=== PATIENT | female | born 1970 | race Caucasian/White ===

== ENCOUNTER 2020-08-06 16:03 | Outpatient (REF) | payer OTHER, SELFPAY ==
[2020-08-06 16:20] LABS: COVID-19 Test Negative (Negative)
== END 2020-08-06 16:04 | disposition home or self-care (01) ==
LOC: HO.LAB 16:03
PROVIDERS: Visit Provider Internal Medicine
DX: Z20.828 Contact with and (suspected) exposure to other viral communicable diseases (principal)
CPT/HCPCS: 87635

== ENCOUNTER 2020-08-10 07:19 | Outpatient (REF) | payer OTHER, SELFPAY ==
[2020-08-10 07:52] LABS: COVID-19 Test Negative (Negative)
== END 2020-08-10 07:20 | disposition home or self-care (01) ==
LOC: HO.LAB 07:19
PROVIDERS: Visit Provider Internal Medicine
DX: Z20.828 Contact with and (suspected) exposure to other viral communicable diseases (principal)
CPT/HCPCS: 87635

== ENCOUNTER 2020-08-14 04:43 | Outpatient (REF) | payer OTHER, SELFPAY ==
[2020-08-14 09:04] LABS: SARS COV2 IgG Negative (Negative)
== END 2020-08-14 04:44 | disposition home or self-care (01) ==
LOC: HO.LAB 04:43
PROVIDERS: PCP Physician Assistant; Visit Provider Emergency Medicine
DX: Z01.84 Encounter for antibody response examination (principal); Z86.19 Personal history of other infectious and parasitic diseases
CPT/HCPCS: 86769

== ENCOUNTER 2020-08-31 07:15 | Outpatient (REF) | payer OTHER, SELFPAY ==
[2020-08-31 08:06] LABS: COVID-19 Test Negative (Negative); IDNOW Serial# 55D5AD1C
== END 2020-08-31 07:16 | disposition home or self-care (01) ==
LOC: HO.LAB 07:15
PROVIDERS: Visit Provider Internal Medicine
DX: Z20.828 Contact with and (suspected) exposure to other viral communicable diseases (principal)
CPT/HCPCS: 87635; C9803

== ENCOUNTER 2020-09-09 11:26 | Outpatient (REF) | payer OTHER, SELFPAY ==
[2020-09-09 11:47] LABS: COVID-19 Test Negative (Negative)
== END 2020-09-09 11:27 | disposition home or self-care (01) ==
LOC: HO.LAB 11:26
PROVIDERS: Visit Provider Internal Medicine
DX: Z20.828 Contact with and (suspected) exposure to other viral communicable diseases (principal)
CPT/HCPCS: 87635; C9803

== ENCOUNTER 2021-01-23 19:11 | Outpatient (REF) | payer OTHER, SELFPAY ==
[2021-01-23 21:34] LABS: Glucose Urine UA NEG (NEG); Leukocyte Esterase Urine TRACE (NEG); Nitrite Urine NEG (NEG); Specific Gravity - Urine <= 1.005 (1.005-1.025); UACC Culture Trigger YES; Urine Blood NEG (NEG); Urine Ketones NEG (NEG); Urine Protein NEG (NEG-TRACE)
[2021-01-23 21:38] LABS: Appearance Urine CLEAR; Color Urine STRAW
[2021-01-23 21:57] LABS: Bacteria Urine TRACE /LPF; Calcium Oxalate Crystals Urine TRACE /LPF; Mucus Urine TRACE /LPF; RBC Urine 0 /HPF (0); Squamous Epithelial Cell Urine 1+ /LPF; WBC Clumps Urine NOTED
== END 2021-01-23 19:12 | disposition home or self-care (01) ==
LOC: HO.LAB 19:11
PROVIDERS: Visit Provider Nurse Practitioner Family
DX: R82.81 Pyuria (principal); R39.15 Urgency of urination
CPT/HCPCS: 81001; 81003; 87086; 87088; 87186

== ENCOUNTER 2021-02-01 07:35 | Outpatient (REF) | payer OTHER, SELFPAY ==
[2021-02-01 07:59] LABS: COVID-19 Test Negative (Negative); IDNOW Serial# 55D5AD1C
== END 2021-02-01 07:36 | disposition home or self-care (01) ==
LOC: HO.EMPCOV 07:35
PROVIDERS: Visit Provider Internal Medicine
DX: Z20.822 Contact with and (suspected) exposure to COVID-19 (principal)
CPT/HCPCS: 36415; 87635; C9803

== ENCOUNTER 2021-03-11 05:42 | Outpatient (REF) | payer OTHER, SELFPAY ==
[2021-03-11 08:29] LABS: SARS COV2 IgG Negative (Negative)
== END 2021-03-11 05:43 | disposition home or self-care (01) ==
LOC: HO.LAB 05:42
PROVIDERS: Visit Provider Emergency Medicine
DX: Z20.822 Contact with and (suspected) exposure to COVID-19 (principal)
CPT/HCPCS: 36415; 86769

== ENCOUNTER 2021-03-25 07:48 | Outpatient (REF) | payer OTHER, SELFPAY ==
--- NOTE | ~2021-03-25 | US_ITS ---
EXAMINATION: US RETROPERITONEAL LIMITED (RENAL ONLY) CLINICAL INFORMATION: History of stones. Follow up. COMPARISON: Renals only ultrasounds dated 03/04/2020 and 02/19/2019. TECHNIQUE: Real-time imaging of the kidneys. FINDINGS: RIGHT KIDNEY: 10.9 x 4.6 x 6.1 cm (SAG x AP x TRV). The kidney is normal in size, contour, and echogenicity. Renal cortical thickness is normal. No renal calculi or hydronephrosis. There is an anechoic cyst in the upper pole measuring 1.4 x 1.1 x 0.90 cm. LEFT KIDNEY: 10.5 x 5.2 x 7.7 cm (SAG x AP x TRV). The kidney is normal in size, contour, and echogenicity. Renal cortical thickness is normal. No focal parenchymal lesions or hydronephrosis. There is an echogenic stone in the midpole measuring 0.41 x 0.30 x 0.40 cm. US/US renal BI IMPRESSION: Nonobstructive echogenic stone midpole left kidney. Anechoic cyst upper pole right kidney. There is no hydronephrosis.
== END 2021-03-25 07:49 | disposition home or self-care (01) ==
LOC: HO.US 07:48
PROVIDERS: Visit Provider Urology
DX: N20.0 Calculus of kidney (principal)
CPT/HCPCS: 76775

== ENCOUNTER → 2021-04-02 11:46 | Outpatient (BNVA) | payer OTHER, SELFPAY | PROVIDERS: Visit Provider Urology ==

== ENCOUNTER 2021-05-03 01:11 | Outpatient (REF) | payer OTHER, SELFPAY ==
[2021-05-03 03:20] LABS: Glucose Urine UA NEG (NEG); Leukocyte Esterase Urine 1+ (NEG); Nitrite Urine NEG (NEG); Specific Gravity - Urine >= 1.030 (1.005-1.025); UACC Culture Trigger YES; Urine Blood 1+ (NEG); Urine Ketones NEG (NEG); Urine Protein NEG (NEG-TRACE)
[2021-05-03 03:21] LABS: Appearance Urine HAZY; Color Urine YELLOW
[2021-05-03 03:31] LABS: Bacteria Urine TRACE /LPF; Mucus Urine 2+ /LPF; Squamous Epithelial Cell Urine 2+ /LPF; WBC Urine 0-2 /HPF (0-4)
== END 2021-05-03 01:12 | disposition home or self-care (01) ==
LOC: HO.LAB 01:11
PROVIDERS: Visit Provider Nurse Practitioner Family
DX: N39.0 Urinary tract infection, site not specified (principal)
CPT/HCPCS: 81001; 81003; 87086

== ENCOUNTER 2021-05-19 15:36 | Outpatient (REF) | payer OTHER, SELFPAY ==
[2021-05-19 16:33] LABS: Glucose Urine UA NEG (NEG); Leukocyte Esterase Urine TRACE (NEG); Nitrite Urine POS (NEG); Specific Gravity - Urine >= 1.030 (1.005-1.025); Urine Blood 2+ (NEG); Urine Ketones NEG (NEG); Urine Protein NEG (NEG-TRACE)
[2021-05-19 16:35] LABS: Appearance Urine CLEAR; Color Urine YELLOW
[2021-05-19 16:56] LABS: Squamous Epithelial Cell Urine 1+ /LPF
[2021-05-19 16:57] LABS: Bacteria Urine 2+ /LPF; Mucus Urine 1+ /LPF
== END 2021-05-19 15:37 | disposition home or self-care (01) ==
LOC: HO.LAB 15:36
PROVIDERS: PCP Physician Assistant; Visit Provider Urology
DX: N20.0 Calculus of kidney (principal)
CPT/HCPCS: 81001; 87086

== ENCOUNTER 2021-05-20 01:12 | Emergency (ER) | payer OTHER, SELFPAY ==
--- NOTE | ~2021-05-20 | CT_ITS ---
EXAMINATION: CT ABDOMEN AND PELVIS WITHOUT CONTRAST CLINICAL INFORMATION: Question of stone COMPARISON: Ultrasound dated 03/25/2021 TECHNIQUE: Multidetector volumetric imaging was performed from the superior aspect of the liver through the pubic symphysis. Sagittal and coronal reformatted images were obtained on the technologist's workstation. This CT examination was performed using dose optimization techniques as appropriate, variously including the following: *Automated exposure control *Adjustment of mA and/or kV according to patient size (this includes techniques or standardized protocols for targeted exams where dose is matched to indication/reason for exam; i.e. extremities or head) *Use of iterative reconstruction technique DLP: 713 mGy-cm FINDINGS: LUNG BASES: The visualized lung bases are unremarkable. LIVER, GALLBLADDER, AND BILIARY TREE: The liver is normal in size, shape, and attenuation. No suspicious liver lesions. There are a few hepatic cysts. No intra or extrahepatic biliary dilatation. Gallbladder unremarkable. PANCREAS: Unremarkable. SPLEEN: Unremarkable. ADRENAL GLANDS: Unremarkable. KIDNEYS AND URETERS: There is a 4 mm stone within the distal right ureter at the ureterovesical junction associated mild upstream hydroureteronephrosis and perinephric stranding. There are additional single bilateral nonobstructive intrarenal calculi each measuring 4 mm, lower pole right and interpolar left kidney. BLADDER: Unremarkable. GASTROINTESTINAL TRACT: Small sliding-type hiatal hernia. The small and large bowel are unremarkable. The appendix is unremarkable. ABDOMINAL WALL: No significant hernia is appreciated. LYMPH NODES: Normal. VASCULAR: Unremarkable. PELVIC VISCERA: IUD present within the uterus. Ovaries unremarkable. OSSEOUS STRUCTURES: No acute or suspicious osseous abnormalities. CT/CT abdomen pelvis wo con IMPRESSION: * There is a 4 mm calculus within the distal RIGHT ureter at the ureterovesical junction associated with mild upstream hydroureteronephrosis and perinephric stranding indicative of obstructive uropathy. * Single bilateral nonobstructive intrarenal calculi.
[2021-05-20 01:14] VITALS: BP 177/101; PULSE 103; RESP 20; TEMP 36.8; O2SAT 96; BMI 31.6
--- NOTE | 2021-05-20 01:21 | ED_ITS ---
HPI - Abdominal Pain General Chief Complaint: Abdominal Pain <SURJIT Beach Last Filed: 05/20/21 01:37> Stated Complaint: ? <SURJIT Beach Last Filed: 05/20/21 01:37> Time Seen by Provider: 05/20/21 01:20 <SURJIT Beach Last Filed: 05/20/21 01:37> Source: patient <SURJIT Beach Last Filed: 05/20/21 01:37> Mode of arrival: ambulatory <SURJIT Beach Filed: 05/20/21 01:37> Limitations: no limitations <SURJIT Beach Alan Filed: 05/20/21 01:37> History of Present Illness HPI narrative: Patient is a 50-year-old female with a past medical history of recurrent nephrolithiasis presenting with right-sided flank pain x1 day. She states she has had a kidney stone on the left side that she passed approximately a week ago and sometimes gets refractory infections. She called Dr. Ford today and had her urine tested yesterday and it was positive for infection. She does have a little bit of blood in her urine as well as nausea but denies vomiting or fevers. Patient has been taking Pyridium for the past 3 days with good relief of pain but is no longer working well for her. <SURJIT Beach Last Filed: 05/20/21 01:37> Related Data Home Medications: Home Medications Medication Instructions Recorded Confirmed cefuroxime axetil 500 mg tablet 500 mg PO BID 04/02/21 fluconazole 150 mg tablet 0 mg PO 04/02/21 Previous Rx's Medication Instructions Recorded cefuroxime axetil 500 mg tablet 500 mg PO Q12H 7 Days #14 tab 05/20/21 ketorolac 10 mg tablet 10 mg PO Q8H PRN #20 tab 05/20/21 ondansetron HCl 4 mg tablet 4 mg PO Q8H PRN #10 tab 05/20/21 (Zofran) prednisone 20 mg tablet 20 mg PO BID #10 tab 05/20/21 <SURJIT Beach Last Filed: 05/20/21 01:37> Allergies/Adverse Reactions: Allergies Allergy/AdvReac Type Severity Reaction Status Date / Time No Known Allergies Allergy Verified 05/20/21 01:21 [No Known Allergies*] <Cris Granados PA-C - Last Filed: 05/20/21 01:37> Review of Systems Review of Systems Yes all other systems are reviewed and are negative <RADHA Beach - Last Filed: 05/20/21 01:37> Physical Exam Vital Signs: Vital Signs: Last Vital Signs Temp 98.3 F 05/20/21 01:14 Pulse 103 H 05/20/21 01:14 Resp 05/20/21 01:14 BP 177/101 H 05/20/21 01:14 Pulse Ox 96 05/20/21 01:14 Body Mass Index 31.6 <Cris Granados PA-C - Last Filed: 05/20/21 01:37> Vital Signs: Last Vital Signs Temp 98.3 F 05/20/21 01:14 Pulse 103 H 05/20/21 01:14 Resp 05/20/21 01:14 BP 177/101 H 05/20/21 01:14 Pulse Ox 96 05/20/21 01:14 Body Mass Index 31.6 <Ace Rock MD - Last Filed: 05/20/21 02:47> Const: General: cooperative, healthy appearing, comfortable and no acute distress <Cris Granados PA-C - Last Filed: 05/20/21 01:37> Nutritional Appearance: average body habitus <SURJIT Beach Last Filed: 05/20/21 01:37> Orientation/consciousness: patient oriented x3 <SURJIT Beach Last Filed: 05/20/21 01:37> Limitations: no limitations <SURJIT Beach Last Filed: 05/20/21 01:37> Eyes: General: appearance normal, both eyes and all related structures <SURJIT Beach Last Filed: 05/20/21 01:37> Neck: Neck: Yes normal visual inspection and Yes full ROM <SURJIT Beach Last Filed: 05/20/21 01:37> Resp: Effort & Inspection: normal respiratory effort and able to speak in complete sentences <SURJIT Beach Last Filed: 05/20/21 01:37> GI: Inspection: Yes normal to inspection <SURJIT Beach Last Filed: 05/20/21 01:37> Palpation (GI): Soft to palpation and nontender <SURJIT Beach Last Filed: 05/20/21 01:37> : General: Yes no CVA tenderness <SURJIT Beach Last Filed: 05/20/21 01:37> Back/Spine/Pelvis: Back: no CVA tenderness <SURJIT Beach Last Filed: 05/20/21 01:37> Neuro: General: patient oriented x3 <SURJIT Beach Last Filed: 05/20/21 01:37> Extrem: General: Yes normal to inspection and Yes full ROM <SURJIT Beach Last Filed: 05/20/21 01:37> Course Course Course Narrative: Patient is a 50-year-old female with a past medical history of recurrent nephrolithiasis presenting with right-sided flank pain x1 day. Vital signs reveal slightly hypertensive and tachycardic, likely secondary to pain. Will give patient Zofran, Toradol, labs and order CT scan to verify no hydronephrosis. UA+ for infection from today. Will start antibiotics in the ED and send RX for remainder. Patient has history of E coli infection in the urine. <SURJIT Beach Last Filed: 05/20/21 01:37> Reevaluation(s) Reevaluation #1: Patient's vital signs seem to be re-checked once she is medicated for pain. Sent prescription to pharmacy for UTI. CT of abdomen and pelvis pending. Sign out to Dr. Rock. <SURJIT Beach Last Filed: 05/20/21 01:37> Time: 01:32 <SURJIT Beach Last Filed: 05/20/21 01:37> Reevaluation #2: Patient was seen and evaluated by me. 50-year-old female came in with right flank pain, known history of kidney stones and UTI. CT showed obstructing 4 mm stone at the right UVJ with hydroureteronephrosis, with normal kidney function test. Labs/CT finding were discussed with the patient. Borderline hyperglycemia patient was instructed to monitor blood sugar. Slight elevation of BP patient is instructed to keep monitoring blood pressure. Will discharge the patient on 5 days of prednisone, Toradol, cefuroxime. <Ace Rock MD - Last Filed: 05/20/21 02:47> Time: 02:43 <Ace Rock MD - Last Filed: 05/20/21 02:47> MDM - Abdominal Pain Lab Data Attestation: I reviewed the patient's lab results. <Ace Rock MD - Last Filed: 05/20/21 02:47> Result diagrams: : 05/20/21 01:46 05/20/21 01:46 <Cris Granados PA-C - Last Filed: 05/20/21 01:37> Labs: Lab Results 05/20/21 05/20/21 Range/Units 01:46 01:46 WBC 10.0 (4.8-10.8) X10*3/uL RBC 4.69 (4.20-5.50) X10*6/uL Hgb 13.9 (12.0-16.0) g/dl Hct 41.6 (37-47) % MCV 88.7 (80-98) fL MCH 29.6 (27.0-33.0) pg MCHC 33.4 (31.0-35.0) g/dl RDW 12.0 (11.0-16.0) % Plt Count 373 (160-400) X10*3/uL MPV 9.7 (9.4-12.3) fL Immature Gran % (Auto) 0.3 (0.0-0.4) % Neut % (Auto) 77.6 H (45-73) % Lymph % (Auto) 16.3 L (20-40) % [place] % (Auto) 4.7 (2-11) % Eos % (Auto) 0.5 (0-4) % Baso % (Auto) 0.6 (0-2) % Lymph # (Auto) 1.6 (1.2-4.9) X10*3/uL [place] # (Auto) 0.5 (0.1-1.2) X10*3/uL Eos # (Auto) 0.1 (0.0-0.4) X10*3/uL Baso # (Auto) 0.1 (0.0-0.2) X10*3/uL Abs Immat Gran (auto) 0.03 (0.00-0.03) X10*3/uL Absolute Neuts (auto) 7.8 (2.0-8.3) X10*3/uL Absolute Nucleated RBC 0.000 (0.0-0.012) X10*3/uL Nucleated RBC % (auto) 0.0 (0.0-0.2) /100WBC Sodium 140 (135-145) mmol/L Potassium 3.7 (3.3-5.1) mmol/L Chloride 106 (96-108) mmol/L Carbon Dioxide 24 (22-29) mmol/L Anion Gap 14 (12-20) BUN 12 (9-16) mg/dL Creatinine 0.95 (0.5-1.4) mg/dL Estim Creat Clear Calc 75.1 Estimated GFR > 60 Random Glucose 119 H (60-115) mg/dL Calcium 9.2 (8.4-10.2) mg/dL <Cris Granados PA-C - Last Filed: 05/20/21 01:37> Lab Results 05/20/21 05/20/21 Range/Units 01:46 01:46 WBC 10.0 (4.8-10.8) X10*3/uL RBC 4.69 (4.20-5.50) X10*6/uL Hgb 13.9 (12.0-16.0) g/dl Hct 41.6 (37-47) % MCV 88.7 (80-98) fL MCH 29.6 (27.0-33.0) pg MCHC 33.4 (31.0-35.0) g/dl RDW 12.0 (11.0-16.0) % Plt Count 373 (160-400) X10*3/uL MPV 9.7 (9.4-12.3) fL Immature Gran % (Auto) 0.3 (0.0-0.4) % Neut % (Auto) 77.6 H (45-73) % Lymph % (Auto) 16.3 L (20-40) % [place] % (Auto) 4.7 (2-11) % Eos % (Auto) 0.5 (0-4) % Baso % (Auto) 0.6 (0-2) % Lymph # (Auto) 1.6 (1.2-4.9) X10*3/uL [place] # (Auto) 0.5 (0.1-1.2) X10*3/uL Eos # (Auto) 0.1 (0.0-0.4) X10*3/uL Baso # (Auto) 0.1 (0.0-0.2) X10*3/uL Abs Immat Gran (auto) 0.03 (0.00-0.03) X10*3/uL Absolute Neuts (auto) 7.8 (2.0-8.3) X10*3/uL Absolute Nucleated RBC 0.000 (0.0-0.012) X10*3/uL Nucleated RBC % (auto) 0.0 (0.0-0.2) /100WBC Sodium 140 (135-145) mmol/L Potassium 3.7 (3.3-5.1) mmol/L Chloride 106 (96-108) mmol/L Carbon Dioxide 24 (22-29) mmol/L Anion Gap 14 (12-20) BUN 12 (9-16) mg/dL Creatinine 0.95 (0.5-1.4) mg/dL Estim Creat Clear Calc 75.1 Estimated GFR > 60 Random Glucose 119 H (60-115) mg/dL Calcium 9.2 (8.4-10.2) mg/dL <Ace Rock MD - Last Filed: 05/20/21 02:47> Imaging Data CT scan - abdomen: Radiologist's impression: ? There is a 4 mm calculus within the distal RIGHT ureter at the ureterovesical junction associated with mild upstream hydroureteronephrosis and perinephric stranding indicative of obstructive uropathy. *? Single bilateral nonobstructive intrarenal calculi.? <Ace Rock MD - Last Filed: 05/20/21 02:47> Discharge Plan Discharge Clinical Impression: Right nephrolithiasis UTI (urinary tract infection) Qualifiers: Urinary tract infection type: acute cystitis Hematuria presence: with hematuria Qualified Code(s): N30.01 - Acute cystitis with hematuria <Cris Granados PA-C - Last Filed: 05/20/21 01:37> Patient Disposition: Home, Self-Care <Cris Granados PA-C - Last Filed: 05/20/21 01:37> Instructions: Kidney Stones (ED), Urinary Tract Infection in Women (ED) <Cris Granados PA-C - Last Filed: 05/20/21 01:37> Prescriptions: New cefuroxime axetil 500 mg tablet 500 mg PO Q12H 7 Days Qty: 14 RF: 0 ondansetron HCl [Zofran] 4 mg tablet 4 mg PO Q8H PRN (Reason: nausea and vomiting) Qty: 10 RF: 0 prednisone 20 mg tablet 20 mg PO BID Qty: 10 RF: 0 ketorolac 10 mg tablet 10 mg PO Q8H PRN (Reason: pain) Qty: 20 RF: 0 <Cris Granados PA-C - Last Filed: 05/20/21 01:37> Referrals: Darshan Ford MD [Physician] - 2 days <Cris Granados PA-C - Last Filed: 05/20/21 01:37> [facility] Past Medical History Medical History: Medical History Recurrent nephrolithiasis <Cris Granados PA-C - Last Filed: 05/20/21 01:37> Social History Social History: Social History Advance Directives: No Advance Directives Information Provided: No Patient : No <Cris Granados PA-C - Last Filed: 05/20/21 01:37>
--- NOTE | 2021-05-20 01:27 | PC.NURSE ---
PA at bedside. Pt ambulating to CT. Plan for IV/meds upon return.
[2021-05-20] MEDS: Ketorolac Tromethamine 15 MG/ML VIAL 30 MG IVPUSH (01:38)
--- NOTE | 2021-05-20 01:42 | PC.NURSE ---
IV established, labs obtained. Pt medicated per DEC. Awaiting CT results.
[2021-05-20 01:50] LABS: Basophils Absolute Auto 0.1 X10*3/uL (0.0-0.2); Basophils Percent Auto 0.6 % (0-2); Eosinophils Absolute Auto 0.1 X10*3/uL (0.0-0.4); Eosinophils Percent Auto 0.5 % (0-4); Hematocrit 41.6 % (37-47); Hemoglobin 13.9 g/dl (12.0-16.0); Imm Gran Abs Auto 0.03 X10*3/uL (0.00-0.03); Imm Gran Pct Auto 0.3 % (0.0-0.4); Lymphocytes Absolute Auto 1.6 X10*3/uL (1.2-4.9); Lymphocytes Percent Auto 16.3 % (20-40); MANUAL DIFF FLAG NO; Mean Corpuscular HGB Conc 33.4 g/dl (31.0-35.0); Mean Corpuscular Hemoglobin 29.6 pg (27.0-33.0); Mean Corpuscular Volume 88.7 fL (80-98); Mean Platelet Volume 9.7 fL (9.4-12.3); Monocytes Absolute Auto 0.5 X10*3/uL (0.1-1.2); Monocytes Percent Auto 4.7 % (2-11); Neutrophils Absolute Auto 7.8 X10*3/uL (2.0-8.3); Neutrophils Percent Auto 77.6 % (45-73); Platelet Count 373 X10*3/uL (160-400); Red Blood Count 4.69 X10*6/uL (4.20-5.50)
--- NOTE | 2021-05-20 02:07 | PC.NURSE ---
Pt reports being nearly pain free after Toradol.
[2021-05-20 02:16] LABS: Anion Gap 14 (12-20); Blood Urea Nitrogen 12 mg/dL (9-16); Calcium 9.2 mg/dL (8.4-10.2); Carbon Dioxide 24 mmol/L (22-29); Chloride 106 mmol/L (96-108); Creatinine Clr Calc Pharmacy 75.1; Estimated Glomerular Filt Rate > 60; Glucose Random 119 mg/dL (60-115); Potassium 3.7 mmol/L (3.3-5.1); Sodium 140 mmol/L (135-145)
[2021-05-20 02:54] VITALS: BP 163/72; PULSE 78; RESP 16
== END 2021-05-20 03:26 | disposition home or self-care (01) ==
PROVIDERS: Physician Assistant; Emergency Provider Emergency Medicine
DX: N20.0 Calculus of kidney (principal); N30.01 Acute cystitis with hematuria; Z79.899 Other long term (current) drug therapy
CPT/HCPCS: 36415; 74176; 80048; 85025; 96365; 96375; 99284; J1885; J2405

== ENCOUNTER 2021-06-26 08:23 | Outpatient (REF) | payer OTHER, SELFPAY ==
--- NOTE | ~2021-06-26 | MM_ITS ---
EXAMINATION: MM SCREENING DIGITAL BREAST TOMOSYNTHESIS, BILATERAL CLINICAL INFORMATION: Screening. Asymptomatic. The lifetime risk of breast cancer based on the Tyrer-Cuzick Model is 11%. COMPARISON: Mammography: 06/06/2020, 01/15/2019, 12/18/2017 TECHNIQUE: Digital breast tomosynthesis is performed in both the craniocaudal and mediolateral oblique views along with computer-aided detection (CAD). Synthesized 2D images are generated from the tomosynthesis. FINDINGS: There are scattered areas of fibroglandular density (ACR BI-RADS breast composition Category b). There are no significant masses, abnormal calcifications, or other abnormalities. Parenchymal pattern is similar to prior study. No developing density. No significant changes MM/MM tomosynthesis screening BI IMPRESSION: No mammographic evidence of malignancy. ASSESSMENT: BI-RADS 1: Negative RECOMMENDATION: Routine annual mammography screening. This patient's information was entered into a reminder system with a target due date for their next mammogram.
== END 2021-06-26 08:24 | disposition home or self-care (01) ==
LOC: HO.MAMMO 08:23
PROVIDERS: Visit Provider Physician Assistant
DX: Z12.31 Encounter for screening mammogram for malignant neoplasm of breast (principal)
CPT/HCPCS: 77063; 77067

== ENCOUNTER 2021-06-29 04:45 | Outpatient (REF) | payer OTHER, SELFPAY ==
[2021-06-29 05:22] LABS: COVID-19 Test Negative (Negative); IDNOW Serial# 9DD0AD1C
== END 2021-06-29 04:46 | disposition home or self-care (01) ==
LOC: HO.LAB 04:45
PROVIDERS: Visit Provider Internal Medicine
DX: Z20.822 Contact with and (suspected) exposure to COVID-19 (principal)
CPT/HCPCS: 36415; 87635

== ENCOUNTER 2022-02-11 07:54 | Outpatient (REF) | payer OTHER, SELFPAY ==
--- NOTE | ~2022-02-11 | US_ITS ---
EXAMINATION: US RETROPERITONEAL LIMITED (RENAL ONLY) CLINICAL INFORMATION: Calculus of kidney. COMPARISON: CT abdomen and pelvis 05/20/2021. Renal ultrasound 03/25/2021 and 03/04/2020. TECHNIQUE: Real-time imaging of the kidneys. FINDINGS: RIGHT KIDNEY: 10.6 x 4.1 x 6.0 cm (SAG x AP x TRV). The kidney is normal in size, contour, and echogenicity. Renal cortical thickness is normal. No renal calculi or hydronephrosis. There is an anechoic cyst in the upper pole measuring 1.4 x 1.3 x 1.2 cm. LEFT KIDNEY: 10.1 x 5.0 x 4.8 cm (SAG x AP x TRV). The kidney is normal in size, contour, and echogenicity. Renal cortical thickness is normal. No focal parenchymal lesions or hydronephrosis. There is an echogenic stone in the mid pole measuring 0.6 x 0.5 x 0.7 cm. US/US renal BI IMPRESSION: Anechoic cyst upper pole right kidney measuring 1.4 cm. Nonobstructive echogenic stone mid pole left kidney. No caliectasis or hydronephrosis in either kidney.
== END 2022-02-11 07:55 | disposition home or self-care (01) ==
LOC: HO.US 07:54
PROVIDERS: PCP Physician Assistant; Visit Provider Urology
DX: N20.0 Calculus of kidney (principal)
CPT/HCPCS: 76775

== ENCOUNTER 2022-04-01 10:01 | Outpatient (REF) | payer OTHER, SELFPAY ==
[2022-04-07 04:26] LABS: Stone Source KIDNEY STONE
== END 2022-04-01 11:42 | disposition home or self-care (01) ==
LOC: HO.LAB 10:01
PROVIDERS: Visit Provider Urology
DX: Z13.9 Encounter for screening, unspecified (principal); N20.0 Calculus of kidney
CPT/HCPCS: 82365; 88300

== ENCOUNTER 2022-04-04 09:36 | Outpatient (REF) | payer OTHER, SELFPAY | END 2022-04-04 09:37 | disposition home or self-care (01) | LOC: HO.LAB 09:36 | PROVIDERS: Visit Provider Urology | DX: Z13.89 Encounter for screening for other disorder (principal) ==

== ENCOUNTER 2022-09-15 12:26 | Outpatient (REF) | payer OTHER, SELFPAY ==
--- NOTE | ~2022-09-15 | MM_ITS ---
EXAMINATION: MM SCREENING DIGITAL BREAST TOMOSYNTHESIS, BILATERAL CLINICAL INFORMATION: Screening. Asymptomatic. The lifetime risk of breast cancer based on the Tyrer-Cuzick Model is 10.6%. COMPARISON: Mammography: June 26, 2021 and studies dating back to October 20, 2011 TECHNIQUE: Digital breast tomosynthesis is performed in both the craniocaudal and mediolateral oblique views along with computer-aided detection (CAD). Synthesized 2D images are generated from the tomosynthesis. FINDINGS: There are scattered areas of fibroglandular density (ACR BI-RADS breast composition Category b). There are no significant masses, abnormal calcifications, or other abnormalities. MM/MM tomosynthesis screening BI IMPRESSION: No significant changes from prior exam. ASSESSMENT: BI-RADS 1: Negative RECOMMENDATION: Routine annual mammography screening. This patient's information was entered into a reminder system with a target due date for their next mammogram.
== END 2022-09-15 12:27 | disposition home or self-care (01) ==
LOC: HO.MAMMO 12:26
PROVIDERS: Visit Provider Physician Assistant
DX: Z12.31 Encounter for screening mammogram for malignant neoplasm of breast (principal)
CPT/HCPCS: 77063; 77067

== ENCOUNTER 2023-01-27 08:23 | Outpatient (REF) | payer OTHER, SELFPAY ==
--- NOTE | ~2023-01-27 | US_ITS ---
EXAMINATION: US RETROPERITONEAL LIMITED (RENAL ONLY) CLINICAL INFORMATION: Calculus of kidney. COMPARISON: Bilateral renal ultrasounds dated 02/11/2022 and 03/25/2021. CT abdomen and pelvis without contrast dated 05/20/2021. TECHNIQUE: Real-time imaging of the kidneys. FINDINGS: RIGHT KIDNEY: 10.7 x 4.3 x 5.2 cm (SAG x AP x TRV). The kidney is normal in size, contour, and echogenicity. Renal cortical thickness is normal. 7 x 5 x 11 mm stone in the midpole. 1.4 x 1.6 cm cyst in the upper pole. No hydronephrosis. LEFT KIDNEY: 10.2 x 4.8 x 5.8 cm (SAG x AP x TRV). The kidney is normal in size, contour, and echogenicity. Renal cortical thickness is normal. 9 x 5 x 7 mm stone in the midpole. No focal parenchymal lesions or hydronephrosis. US/US renal BI IMPRESSION: Bilateral renal stones.
== END 2023-01-27 08:24 | disposition home or self-care (01) ==
LOC: HO.US 08:23
PROVIDERS: PCP Physician Assistant; Visit Provider Urology
DX: N20.0 Calculus of kidney (principal)
CPT/HCPCS: 76775

== ENCOUNTER 2023-04-12 08:43 | Outpatient (REF) | payer OTHER, SELFPAY ==
--- NOTE | ~2023-04-12 | XR_ITS ---
EXAMINATION: XR ABDOMEN KUB CLINICAL INDICATION: Renal calculi. COMPARISON: Ultrasound of 01/27/[address] abdomen of 05/20/2021. TECHNIQUE: AP view of the abdomen. FINDINGS: The bowel gas pattern is normal with no evidence of ileus or obstruction. The bones are unremarkable. IUD seen in place. There is a 5 mm calcific density seen overlying the expected location of the right kidney. There is a 5 mm calcification seen overlying the expected location of the left kidney. No calculi seen along the expected paths of the ureters identified. XR/XR KUB IMPRESSION: Bilateral 5 mm renal calculi.
== END 2023-04-12 08:44 | disposition home or self-care (01) ==
LOC: HO.XRAY 08:43
PROVIDERS: PCP Physician Assistant; Visit Provider Nurse Practitioner Family
DX: N20.0 Calculus of kidney (principal); N28.1 Cyst of kidney, acquired
CPT/HCPCS: 74018

== ENCOUNTER 2023-04-28 09:12 | Outpatient (AMB) | payer OTHER, SELFPAY ==
--- NOTE | 2023-04-28 09:21 | MHC.OFFVIS ---
Intake Intake Visit Reasons: 2w/KUB Intake Note: Patient is present for follow up kidney cyst/nephrolithiasis (imaging 04/12/23) Urology Medications: Vitamin B6 Blood Thinner: none Head Of Training And Development Required: No Accompanied by: Self / Same As Patient Allergies No Known Allergies [No Known Allergies*] Allergy (Verified 04/28/23 10:31) Medication List - Last Reconciled 04/28/23 by MAN [id number] prednisone 20 mg PO DAILY 3 days pyridoxine (vitamin B6) 100 mg PO DAILY 90 days tamsulosin (Flomax) 0.4 mg PO BEDTIME 14 days HPI HPI Comments History of Present Illness Details Ning is a very pleasant 52-year-old female patient of Dr. Silva. She presents to the office today for follow-up of her nephrolithiasis. Of note, patient was seen approximately 2 weeks ago at which time a KUB was ordered for further assessment evaluation. These results were reviewed with the patient today. Bilateral 5 mm nonobstructing renal calculi present. Patient reports to be doing and feeling well. She denies any urinary issues or concerns at this time. When asked she denies urinary urgency, urinary frequency, incontinence, nocturia, hematuria, dysuria, foul smelling urine, changes to urinary stream, flank pain, fever, and or chills. She is happy with her current voiding parameters. In office urinalysis results reviewed with the patient today. Discussed surveillance monitoring verses further workup versus surgical intervention. Patient discusses since her last office visit here she has decreased the amount of Coca-Cola she drinks daily. She reports over the last 2 weeks she has not had any Coca-Cola. She does endorse to having had two mountain Dews in the last 2 weeks otherwise she is attempting to drink plenty of water daily. She reports compliance with vitamin B6. She otherwise offers no issues or concerns at this time. PREVIOUS VISIT------ Nephrolithiasis/Urolithiasis:? They are here for?further evaluation of nephrolithiasis.? Urolithiasis was diagnosed? 2016? with ER visit at [facility].? The patient previously had kidney? stones whose composition w?08/01 , calcium oxalate -? monohydrate.? Laboratory investigations include?08/01 , Base line serum evaluation, Normocalcemia (9.0),? Normal PTH,? Normal uric acid - high normal? parathyroid hormone and high normal calcium..? 24 Hour urine? evaluation?none on file.? Prior treatment(s) include?observation,? with dietary advice to increase? fluids, decrease salt and watch protein intake.? Prior imaging? includes?06/01 [facility] , a CT (computed tomography) scan of the abdomen/pelvis? (stone protocol) - apparently stone present ?07/02 , a renal? ultrasound, showing no evidence of stones ?01/31 , a renal? ultrasound, showing radiodense stone(s) 2mm Right ?02/01 , a renal? ultrasound, showing radiodense stone(s), 2 mm bilateral ?03/04? , a renal? ultrasound no stones - 04/05 renal ultrasound with 5 mm cyst on right, 4 mm stone on left - 04/06 renal ultrasound 1.2 cm cyst on right, 6 mm stone on left ? UA today shows?specific gravity within? normal range suggestive of adequate hydration today.? Current? therapeutic plan will be?General advice to? maintain good fluid intake for urine greater than 1.5 L per day, reduce salt and? reduce protein and acid loads was provided.? [facility] Medical History (Reviewed 04/28/23 @ 10:30 by Brittanie Elizabeth [facility]) Recurrent nephrolithiasis Review of Systems Const All systems reviewed & are unremarkable except as noted in HPI and below Reports no additional complaints Eyes Reports no additional complaints ENT Reports no additional complaints Card Reports no additional complaints Resp Reports no additional complaints GI Reports no additional complaints Reports as per HPI Musc Reports no additional complaints Neuro Reports no additional complaints Psych Reports no additional complaints Endo Reports no additional complaints Jeromy/Lymph Reports no additional complaints Aller/Immun Reports no additional complaints Physical Exam Const General: cooperative, healthy appearing, comfortable, no acute distress, well developed, alert and awake Orientation/consciousness: patient oriented x3 Limitations: no limitations HEENT Head: Yes normal to inspection, Yes normocephalic and Yes atraumatic Ears: hearing grossly normal bilaterally Eyes General: appearance normal, both eyes and all related structures Neck Neck: Yes normal visual inspection and Yes trachea midline Chest Chest palpation & inspection: normal inspection of the chest Resp Effort & Inspection: normal respiratory effort and able to speak in complete sentences Cardio Rate: regular rate GI Inspection: Yes normal to inspection General: Yes no CVA tenderness Back/Spine/Pelvis Back: no CVA tenderness Skin General skin exam: no rashes or lesions noted Neuro General: patient oriented x3 Extrem General: Yes normal to inspection Psych Appearance: grossly normal and well kempt Mental Status: mental status grossly normal Speech and movement: Normal speech and movement present and Clear speech present Affect: normal affect Attitude: cooperative Thought process: Normal thought process present Thought content: Normal thought content present Insight: Good insight present (Psych) Judgement: Good judgement present (Psych) Results Reviewed Results Reviewed: Date of Service: 04/12/23 EXAMINATION: XR ABDOMEN KUB FINDINGS: The bowel gas pattern is normal with no evidence of ileus or obstruction. The bones are unremarkable. IUD seen in place. There is a 5 mm calcific density seen overlying the expected location of the right kidney. There is a 5 mm calcification seen overlying the expected location of the left kidney. No calculi seen along the expected paths of the ureters identified. IMPRESSION: Bilateral 5 mm renal calculi. Assessment & Plan Assessment & Plan (1) Recurrent nephrolithiasis: Code(s): N20.0 - Calculus of kidney (2) Renal cyst: Code(s): N28.1 - Cyst of kidney, acquired Plan Recent KUB imaging results reviewed with the patient today; as noted above Continue vitamin B6 as discussed and prescribed. Continue adding 1 oz of lemon juice to water daily. Continue drinking plenty of water daily. Discussed at length potential causes of nephrolithiasis. Discussed surgical intervention versus surveillance monitoring Patient denies any urological issues or concerns at this time. PRN nephrolithiasis medications provided Renal ultrasound in 1 year Follow-up in 1 year with imaging to be completed prior; or sooner with any issues, concerns, and or questions. Orders: Orders US renal BI 364 Days N20.0 - Calculus of kidney Medications: New tamsulosin (Flomax) 0.4 mg PO BEDTIME 14 caps 0RF 14 days N13.2 - Hydronephrosis with renal and ureteral calculous obstruction prednisone 20 mg PO DAILY 3 tabs 0RF 3 days N20.0 - Calculus of kidney, N41.9 - Inflammatory disease of prostate, unspecified pyridoxine (vitamin B6) 100 mg PO DAILY 90 tabs 3RF 90 days Discontinued pyridoxine (vitamin B6) Discontinued Reason: Doctor's Order 100 mg PO DAILY 90 days 90 tabs 3RF N20.0 - Calculus of kidney Coding Level of Care Code Est Pt Level 4 (68570) Diagnoses Recurrent nephrolithiasis N20.0 Renal cyst N28.1
== END 2023-04-28 09:54 | disposition home or self-care (01) ==
PROVIDERS: PCP Physician Assistant; Visit Provider Nurse Practitioner Family
DX: N20.0 Calculus of kidney (principal); N28.1 Cyst of kidney, acquired
CPT/HCPCS: 99214

== ENCOUNTER → 2023-04-28 09:12 | Outpatient (BNVA) | payer OTHER, SELFPAY | PROVIDERS: PCP Physician Assistant; Visit Provider Nurse Practitioner Family ==

== ENCOUNTER 2023-09-19 12:42 | Outpatient (REF) | payer OTHER, SELFPAY | END 2023-09-19 12:43 | disposition home or self-care (01) | LOC: HO.MAMMO 12:42 | PROVIDERS: PCP Physician Assistant; Visit Provider Physician Assistant | DX: Z12.31 Encounter for screening mammogram for malignant neoplasm of breast (principal) | CPT/HCPCS: 77063; 77067 ==

== ENCOUNTER → 2023-09-19 13:00 | Outpatient (BNV) | payer OTHER, SELFPAY | PROVIDERS: PCP Physician Assistant; Visit Provider Radiology Diagnostic Radiology | DX: Z12.31 Encounter for screening mammogram for malignant neoplasm of breast (principal) | CPT/HCPCS: 77063; 77067 ==

== ENCOUNTER 2024-04-12 08:00 | Outpatient (REF) | payer BC, SELFPAY ==
--- NOTE | ~2024-04-12 | US_ITS ---
EXAMINATION: US RETROPERITONEAL LIMITED (RENAL ONLY) CLINICAL INFORMATION: Calculus of kidney. COMPARISON: X-ray abdomen KUB 04/12/2023. Renal ultrasound 01/27/2023 and 02/11/2022. CT abdomen and pelvis 05/20/2021. TECHNIQUE: Real-time imaging of the kidneys. FINDINGS: RIGHT KIDNEY: 10.9 x 4.3 x 5.0 cm (SAG x AP x TRV). The kidney is normal in size, contour, and echogenicity. Renal cortical thickness is normal. No hydronephrosis. 1.4 x 1.2 x 1.5 cm cyst is seen in the mid kidney, no imaging follow-up recommended. 1.0 x 0.6 x 0.8 cm nonobstructing calculus is seen in the mid kidney. LEFT KIDNEY: 10.0 x 4.8 x 5.6 cm (SAG x AP x TRV). The kidney is normal in size, contour, and echogenicity. Renal cortical thickness is normal. No focal parenchymal lesions or hydronephrosis. 0.6 x 0.3 x 0.5 cm nonobstructing calculus is seen in the mid kidney. ADDITIONAL FINDINGS: Incidental note is made of a 1.1 x 0.9 x 0.8 cm mildly complex cyst in the right lobe of the liver. US/US renal BI IMPRESSION: 1. Bilateral nonobstructing renal calculi. 2. 1.1 cm mildly complex cyst in the right lobe of the liver.
== END 2024-04-12 08:01 | disposition home or self-care (01) ==
LOC: HO.US 08:00
PROVIDERS: PCP Physician Assistant; Visit Provider Nurse Practitioner Family
DX: N20.0 Calculus of kidney (principal)
CPT/HCPCS: 76775

== ENCOUNTER 2024-05-21 15:05 | Outpatient (AMB) | payer BC, SELFPAY ==
--- NOTE | 2024-05-21 15:07 | MHC.OFFVIS ---
Intake Visit Reasons: 1y/US(set) Intake Note: Patient is present for 1Y follow up/US Urology Medications: Vitamin B6,TAMSULOSIN Blood Thinner: none ALLERGIES:none Cork Mixer Required: No Accompanied by: Self / Same As Patient Allergies No Known Allergies [No Known Allergies*] Allergy (Verified 05/21/24 16:30) Medication List - Last Reconciled 05/21/24 by MAN Tapia- ondansetron HCl 4 mg PO Q8H 7 days prednisone 20 mg PO DAILY 3 days pyridoxine (vitamin B6) 100 mg PO DAILY 90 days tamsulosin (Flomax) 0.4 mg PO BEDTIME 14 days HPI Comments Details: Ning is a very pleasant 53-year-old female patient of Dr. Silva. She presents to the office today for follow-up of her nephrolithiasis. In discussion with the patient today she reports to be doing and feeling well. She reports since her last office visit here approximately 1 year ago she had been doing and feeling well up until approximately 2 days ago when she had started experiencing left-sided flank pain however after having a bowel movement felt this had somewhat subsided. She reports she is unsure if she is passing a kidney stone or pain she had been experiencing was gas related. In office urinalysis results reviewed with the patient today 2+ microscopic hematuria. PH 5.0 discussed and stressed the importance of adequate hydration in relation to nephrolithiasis as well as overall health and well-being. Recent renal imaging results reviewed with the patient today. Right kidney with no hydronephrosis. 1.5 cm cyst is seen in the mid kidney that requires no follow-up imaging per radiology report. 1.0 cm nonobstructing calculi seen in the mid kidney. Left kidney with no lesions or hydronephrosis. 0.6 cm nonobstructing calculus is seen in the mid kidney. She denies any urinary issues or concerns at this time. When asked she denies urinary urgency, urinary frequency, incontinence, nocturia, hematuria, dysuria, foul smelling urine, changes to urinary stream, flank pain, fever, and or chills. She is happy with her current voiding parameters. Discussed surveillance monitoring verses further workup versus surgical intervention. Patient discusses since her last office visit here she has decreased the amount of soda consumption she had been previously having. She reports compliance with vitamin B6. 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 She otherwise offers no issues or concerns at this time. PREVIOUS VISIT------ Nephrolithiasis/Urolithiasis:? They are here for?further evaluation of nephrolithiasis.? Urolithiasis was diagnosed? 2017? with ER visit at [facility].? The patient previously had kidney? stones whose composition w?08/01 , calcium oxalate -? monohydrate.? Laboratory investigations include?08/01 , Base line serum evaluation, Normocalcemia (9.0),? Normal PTH,? Normal uric acid - high normal? parathyroid hormone and high normal calcium..? 24 Hour urine? evaluation?none on file.? Prior treatment(s) include?observation,? with dietary advice to increase? fluids, decrease salt and watch protein intake.? Prior imaging? includes?06/01 [facility] , a CT (computed tomography) scan of the abdomen/pelvis? (stone protocol) - apparently stone present ?07/02 , a renal? ultrasound, showing no evidence of stones ?01/31 , a renal? ultrasound, showing radiodense stone(s) 2mm Right ?02/01 , a renal? ultrasound, showing radiodense stone(s), 2 mm bilateral ?03/04? , a renal? ultrasound no stones - 04/05 renal ultrasound with 5 mm cyst on right, 4 mm stone on left - 04/06 renal ultrasound 1.2 cm cyst on right, 6 mm stone on left ? UA today shows?specific gravity within? normal range suggestive of adequate hydration today.? Current? therapeutic plan will be?General advice to? maintain good fluid intake for urine greater than 1.5 L per day, reduce salt and? reduce protein and acid loads was provided.? PFSH Medical History Recurrent nephrolithiasis Review of Systems Const All systems reviewed & are unremarkable except as noted in HPI and below Reports no additional complaints Eyes Reports no additional complaints ENT Reports no additional complaints Card Reports no additional complaints Resp Reports no additional complaints GI Reports no additional complaints Reports as per HPI Musc Reports no additional complaints Neuro Reports no additional complaints Psych Reports no additional complaints Endo Reports no additional complaints Jeromy/Lymph Reports no additional complaints Aller/Immun Reports no additional complaints Physical Exam Const General: cooperative, healthy appearing, comfortable, no acute distress, well developed, alert and awake Orientation/consciousness: patient oriented x3 Limitations: no limitations HEENT Head: Yes normal to inspection, Yes normocephalic and Yes atraumatic Ears: hearing grossly normal bilaterally Eyes General: appearance normal, both eyes and all related structures Neck Neck: Yes normal visual inspection and Yes trachea midline Chest Chest palpation & inspection: normal inspection of the chest Resp Effort & Inspection: normal respiratory effort and able to speak in complete sentences Cardio Rate: regular rate GI Inspection: Yes normal to inspection General: Yes no CVA tenderness Back/Spine/Pelvis Back: no CVA tenderness Skin General skin exam: no rashes or lesions noted Neuro General: patient oriented x3 Extrem General: Yes normal to inspection Psych Appearance: grossly normal and well kempt Mental Status: mental status grossly normal Speech and movement: Normal speech and movement present and Clear speech present Affect: normal affect Attitude: cooperative Thought process: Normal thought process present Thought content: Normal thought content present Insight: Good insight present (Psych) Judgement: Good judgement present (Psych) Results AMB Urinalysis, Automated UA Leukoctes 0 Meet/uL Last Edit by CESARIO Chawla on 05/21/24 15:22 UA Nitrite Negative Last Edit by CESARIO Chawla on 05/21/24 15:22 UA Urobilinogen 0.2 mg/dL Last Edit by CESARIO Chawla on 05/21/24 15:22 UA Protein 15 mg/dL Last Edit by CESARIO Chawla on 05/21/24 15:22 UA pH 5.0 Last Edit by CESARIO Chawla on 05/21/24 15:22 UA Blood 80 [place]illan/uL Last Edit by CESARIO Chawla on 05/21/24 15:22 UA Specific [place] 1.020 Last Edit by CESARIO Chawla on 05/21/24 15:22 UA Ketone Negative Last Edit by Marko Blankenship CCM on 05/21/24 15:22 UA Bilirubin 0 mg/dL Last Edit by CESARIO Chawla on 05/21/24 15:22 UA Glucose 0 mg/dL Last Edit by CESARIO Chawla on 05/21/24 15:22 Results Reviewed Results Reviewed: Laboratory Last Values Urine pH (Auto) 5.0 05/21/24 15:22 Specific [place] (Auto) 1.020 05/21/24 15:22 Urine Protein (Auto) 15 mg/dL 05/21/24 15:22 Glucose (UA)(Auto) 0 mg/dL 05/21/24 15:22 Urine Ketones (Auto) Negative 05/21/24 15:22 Urine Blood (Auto) 80 [place]illan/uL 05/21/24 15:22 Urine Nitrite (Auto) Negative 05/21/24 15:22 Urine Bilirubin (Auto) 0 mg/dL 05/21/24 15:22 Urine Urobilinogen (Auto) 0.2 mg/dL 05/21/24 15:22 Leukocyte Esterase (Auto) 0 Meet/uL 05/21/24 15:22 Date of Service: 04/12/24 EXAMINATION: US RETROPERITONEAL LIMITED (RENAL ONLY) FINDINGS: RIGHT KIDNEY: 10.9 x 4.3 x 5.0 cm (SAG x AP x TRV). The kidney is normal in size, contour, and echogenicity. Renal cortical thickness is normal. No hydronephrosis. 1.4 x 1.2 x 1.5 cm cyst is seen in the mid kidney, no imaging follow-up recommended. 1.0 x 0.6 x 0.8 cm nonobstructing calculus is seen in the mid kidney. LEFT KIDNEY: 10.0 x 4.8 x 5.6 cm (SAG x AP x TRV). The kidney is normal in size, contour, and echogenicity. Renal cortical thickness is normal. No focal parenchymal lesions or hydronephrosis. 0.6 x 0.3 x 0.5 cm nonobstructing calculus is seen in the mid kidney. ADDITIONAL FINDINGS: Incidental note is made of a 1.1 x 0.9 x 0.8 cm mildly complex cyst in the right lobe of the liver. IMPRESSION: 1. Bilateral nonobstructing renal calculi. 2. 1.1 cm mildly complex cyst in the right lobe of the liver. Assessment & Plan Assessment & Plan (1) Renal cyst: Code(s): N28.1 - Cyst of kidney, acquired Category: Medical (2) Recurrent nephrolithiasis: Code(s): N20.0 - Calculus of kidney Category: Medical (3) Microscopic hematuria: Code(s): R31.29 - Other microscopic hematuria Category: Medical Plan In office urinalysis results reviewed with the patient today; as noted above; pH 5.0 with microscopic hematuria noted discussed importance of adequate hydration in relation to history of nephrolithiasis as well as overall health and well-being. Will obtain KUB for further assessment evaluation. Discussed possible increase in stone burden/size. Patient currently denies any bothersome urinary issues or concerns. She reports be happy with current voiding parameters. Discussed further intervention to include surveillance monitoring versus surgical intervention; risks and benefits of these interventions were discussed. Follow-up in 1months with imaging to be completed prior; or sooner with any issues, concerns, and or questions. Orders: Orders AMB Urinalysis Automated Today Z13.9 - Encounter for screening, unspecified XR KUB Today N20.0 - Calculus of kidney Medications: New ondansetron HCl 4 mg PO Q8H 21 tabs 0RF 7 days Patient Instructions: The patient had an opportunity to ask questions regarding the treatment plan. All questions were answered. Physical exam, labs, and imaging were discussed and reviewed in detail. As well as risks, benefits, and discussion of treatment choices. No major barriers to understanding were identified. The patient expressed understanding and agreement with the above treatment plan. The patient was made aware they should contact our office by phone for worsening of their current condition, the appearance of new symptoms, or with any questions or concerns. Compliance is encouraged with any medications and follow up testing that is ordered. It is a privilege to be allowed the opportunity to participate in? your urological care.? Again, if you have any questions or concerns If you have any questions or concerns please do not hesitate to contact me. The office is [phone]. This note is constructed using voice recognition software. While every effort has been made to ensure accuracy financial operations consultant errors may have been included. Yours sincerely, REE Tapia Coding Level of Care Code Est Pt Level 4 (42848) Diagnoses Renal cyst N28.1 Recurrent nephrolithiasis N20.0 Microscopic hematuria R31.29
== END 2024-05-21 15:42 | disposition home or self-care (01) ==
PROVIDERS: PCP Physician Assistant; Visit Provider Nurse Practitioner Family
DX: N28.1 Cyst of kidney, acquired (principal); N20.0 Calculus of kidney; R31.29 Other microscopic hematuria; Z13.9 Encounter for screening, unspecified
CPT/HCPCS: 99214

== ENCOUNTER → 2024-05-21 15:05 | Outpatient (BNVA) | payer BC, SELFPAY | PROVIDERS: PCP Physician Assistant; Visit Provider Nurse Practitioner Family | DX: R31.29 Other microscopic hematuria (principal); N20.0 Calculus of kidney; N28.1 Cyst of kidney, acquired | CPT/HCPCS: 81003 ==

== ENCOUNTER 2024-06-04 13:06 | Outpatient (REF) | payer BC, SELFPAY ==
--- NOTE | ~2024-06-04 | XR_ITS ---
EXAMINATION: XR ABDOMEN KUB CLINICAL INDICATION: Calculus of kidney. COMPARISON: KUB April 12, 2023 . Renal ultrasound April 12, 2024 TECHNIQUE: AP view of the abdomen. FINDINGS: Bilateral radiopaque renal calculi. In the right kidney there is a stone in the upper pole measuring 6 mm. This is similar to the prior study of April 12, 2023. In the left kidney there is a stone measuring 5 mm that is likely of the ureter pelvic junction. Calculus projects at the medial side of the left renal shadow. IUD in the pelvis. Nonobstructive bowel pattern. XR/XR KUB IMPRESSION: 1. Bilateral radiopaque renal calculi. 2. 5 mm stone in the left kidney likely at the ureteropelvic junction. Electronically signed by: Jono Oliveira MD 06/24/2024 11:01 PM EDT
== END 2024-06-04 13:07 | disposition home or self-care (01) ==
LOC: HO.XRAY 13:06
PROVIDERS: PCP Physician Assistant; Visit Provider Nurse Practitioner Family
DX: N20.0 Calculus of kidney (principal)
CPT/HCPCS: 74018

== ENCOUNTER 2024-06-26 21:17 | Emergency (ER) | payer BC, SELFPAY ==
--- NOTE | ~2024-06-26 | CT_ITS ---
EXAMINATION: CT CHEST, ABDOMEN AND PELVIS withCONTRAST CLINICAL INFORMATION: Abdominal pain. Rectal bleeding. Known kidney stones. Lung nodules with calcification. COMPARISON: CT abdomen and pelvis May 20, 2021. TECHNIQUE: Multidetector volumetric CT imaging of the chest, abdomen and pelvis was obtained . Coronal, Sagittal reformatted images preformed at the CT scanner. [This CT examination was performed using dose optimization techniques as appropriate, variously including the following: *Automated exposure control *Adjustment of mA and/or kV according to patient size (this includes techniques or standardized protocols for targeted exams where dose is matched to indication/reason for exam; i.e. extremities or head) *Use of iterative reconstruction technique] DLP: 1103 mGy-cm. FINDINGS: CT CHEST: Lungs: No acute airspace opacities. No interstitial lung disease. Central bronchial airways are open. No bronchiectasis. There are 2 1 mm nodules in the left lung along the major fissure image 223/554 series 9. No suspicious lung nodules. Mediastinum: No mediastinal mass or significant lymphadenopathy. Heart size is normal. No pericardial effusion. Aorta and great vessels are unremarkable. Normal thyroid. Pleura: There is no pleural effusion. No pleural mass or thickening. Axilla: No lymphadenopathy. CT ABDOMEN AND PELVIS: Liver, Gallbladder and Biliary Tree: There are multiple hepatic cysts. No suspicious liver lesion. No intrahepatic bile duct dilatation. The gallbladder is unremarkable with no evidence of radiopaque gallstones, gallbladder wall thickening, or obvious pericholecystic inflammatory changes. Pancreas: No acute change of the pancreas. No mass. No pancreatic duct dilatation. Spleen: Spleen normal in size and contour. No focal lesion. Adrenal Glands: Adrenal glands are normal in size. No focal mass. Kidneys and Ureters: Right kidney: In the right renal pelvis there is a stone measuring 1 cm. Density measurement 802 Hounsfield units. Stone is 10.7 cm in the posterior skin line. No hydronephrosis. Left kidney: Moderate hydronephrosis of left kidney which is central renal pelvis calyces in the left ureter. There is an obstructing stone in the distal left ureter approximately 7 cm proximal to the ureterovesical junction. Stone is 7 mm. No other stone in the collecting system. Bladder: Unremarkable. Gastrointestinal Tract: No acute abnormality. There is no bowel wall thickening /edema. There is no bowel obstruction. There is a moderate volume of stool in the colon. The appendix is normal . The small bowel loops are unremarkable. The stomach is normal. There is no hiatal hernia. Mesentery: No focal inflammation. No free fluid. No free air. Abdominal Wall: Small fat-containing umbilical hernia. Lymph Nodes: Normal. Vascular: Unremarkable. Pelvic Viscera: Unremarkable. Osseous Structures: Unremarkable. CT/CT abdomen pelvis w IV con IMPRESSION: 1. Moderate hydronephrosis of left kidney due to a 7 mm obstructing stone in the distal left ureter. 2. Nonobstructing stone in the right renal pelvis. 3. No acute abnormality of the chest. Electronically signed by: Jono Oliveira MD 06/26/2024 11:12 PM EDT
[2024-06-26 21:24] VITALS: BP 139/88; PULSE 76; RESP 18; TEMP 36.6; O2SAT 97; BMI 33.3
[2024-06-26 21:41] LABS: MANUAL DIFF FLAG NO
[2024-06-26 21:42] LABS: Basophils Absolute Auto 0.1 X10*3/uL (0.0-0.2); Basophils Percent Auto 0.7 % (0-2); Eosinophils Absolute Auto 0.1 X10*3/uL (0.0-0.4); Eosinophils Percent Auto 1.1 % (0-4); Hemoglobin 12.9 g/dl (12.0-16.0); Imm Gran Abs Auto 0.06 X10*3/uL (0.00-0.03); Imm Gran Pct Auto 0.5 % (0.0-0.4); Lymphocytes Absolute Auto 3.3 X10*3/uL (1.2-4.9); Lymphocytes Percent Auto 28.7 % (20-40); Mean Corpuscular HGB Conc 33.9 g/dl (31.0-35.0); Mean Corpuscular Volume 88.4 fL (80.0-98.0); Mean Platelet Volume 9.5 fL (9.4-12.3); Monocytes Absolute Auto 0.8 X10*3/uL (0.1-1.2); Monocytes Percent Auto 6.9 % (2-11); Neutrophils Absolute Auto 7.2 x10*3/uL (2.0-8.3); Neutrophils Percent Auto 62.1 % (45-73); Platelet Count 321 X10*3/uL (160-400); Red Cell Distribution Width 13.1 % (11.0-16.0); White Blood Count 11.6 X10*3/uL (4.8-10.8)
--- NOTE | 2024-06-26 21:42 | MHC.EDTECH ---
Patient brought into triage area,labs/urine obtained and sent to lab.
--- NOTE | 2024-06-26 21:51 | ED.GENADULT ---
HPI - General Adult General Chief complaint: Abdominal Pain Stated complaint: abdominal pain Time Seen by Provider: 06/26/24 21:18 Source: patient Mode of arrival: ambulatory Limitations: no limitations History of Present Illness ED Provider: Dr. Ayse Zuniga HPI narrative: Patient comes to the emergency room complaining of left-sided flank pain, left abdominal pain, intermittent GI bleed. Patient states that she recently had a KUB done in May, known to have a 5 mm kidney stone. Patient has been taking ketorolac and tamsulosin at home without significant relief. However, patient states that she has been having intermittent lower GI bleeding. Recently had a positive Cologuard result, and patient states that recently in previous imaging she had done through her PCP, showed that she had some unclear opacification of the liver questionable calcifications of the lungs. Patient denies recent weight loss, no night sweats. Related Data Previous Rx's ?Medication ?Instructions ?Recorded prednisone 20 mg tablet 20 mg PO DAILY 3 days #3 tabs 04/28/23 pyridoxine (vitamin B6) 100 mg 100 mg PO DAILY 90 days #90 tabs 04/28/23 tablet tamsulosin 0.4 mg capsule (Flomax) 0.4 mg PO BEDTIME 14 days #14 caps 04/28/23 ondansetron HCl 4 mg tablet 4 mg PO Q8H 7 days #21 tabs 05/21/24 ketorolac 10 mg tablet 10 mg PO TID PRN pain 5 days #15 06/26/24 tabs ondansetron HCl 4 mg tablet 4 mg PO Q6H PRN nausea and 06/26/24 vomiting #20 tabs prednisone 20 mg tablet 20 mg PO DAILY #3 tabs 06/26/24 tamsulosin 0.4 mg capsule 0.4 mg PO DAILY #30 caps 06/26/24 Allergies Allergy/AdvReac Type Severity Reaction Status Date / Time No Known Allergies Allergy Verified 06/26/24 21:26 [No Known Allergies*] Review of Systems Review of Systems: Constitutional : No Weight loss, No Fever, No Chills, No Night Sweats, No Fatigue, No Malaise ENT/Mouth : No Hearing loss, No Ear Pain, No Nasal Congestion, No Sinus Pain, No Hoarseness, No sore throat, No Rhinorrhea, No Swallowing Difficulty Eyes: No Eye Pain, No Swelling, No Redness, No Foreign Body, No Discharge, No Vision Changes Cardiovascular : No Chest Pain, No SOB, No Dyspnea on Exertion, No Orthopnea, No Edema, No Palpitations Respiratory : No Cough, No Sputum, No Wheezing, No Smoke Exposure, No Dyspnea Gastrointestinal : No Nausea, No Vomiting, No Diarrhea, No Constipation, complaining of left lower quadrant pain , intermittent lower GI bleed Genitourinary : no irregular bleeding, No Dysuria, No Urinary Frequency, No Hematuria, No Urinary Incontinence, No Urgency, complaining of left-sided Flank Pain, No Urinary Flow Changes, No Hesitancy Musculoskeletal : No joint pain, No Myalgias, No Joint Swelling Skin : No Skin Lesions, No rash Neuro : No Weakness, No Numbness, No Paresthesias, No Loss of Consciousness, No Dizziness, No Headache Psych : No Anxiety/Panic, No Depression, No SI/HI/AH/VH, No Social Issues, Heme/Lymph: No Bruising, No Bleeding,No Lymphadenopathy Endocrine : No Polyuria, No Polydipsia, No Temperature Intolerance [facility] Past Medical History Medical History Recurrent nephrolithiasis Social History Social History Advance Directives: No Advance Directives Information Provided: Yes Physical Exam ED Vital Signs: Vital Signs - 24 hr 06/26/24 21:24 06/26/24 22:00 Temperature 97.9 F 97.8 F Pulse Rate 76 72 Respiratory Rate 18 16 Blood Pressure 139/88 138/85 Pulse Oximetry 97 96 Oxygen Delivery Method Room Air Room Air BMI result Body Mass Index 33.3 Const Other: Appearance: Alert. Oriented X3. No acute distress. Eyes: Pupils equal, round and reactive to light. ENT: Pharynx normal. Neck: Normal inspection. Neck supple. No lymph nodes noted. No crepitus CVS: Normal heart rate and rhythm. Pulses normal. Normal S1 and S2 Respiratory: No respiratory distress. Breath sounds normal. No Wheezing. No rales Abdomen: Soft discomfort to palpation in left lower quadrant, No rigidity. No distention. CVA tenderness on the left flank Skin: Skin warm and dry. Normal skin color. Normal skin turgor. Extremities: No lower extremity edema. No Lacerations. No Rash Neuro: Oriented X 3. No motor deficit. No sensory deficit. Moving all extremities. No slurred speech. CN 2 through 12 grossly intact Psych: calm, cooperative, normal affect Course Course Course Narrative: -all of patient's labs pending -CT scan of chest abdomen pelvis pending -for relief, patient receiving IV Toradol Medications Administered Discontinued Medications Generic Name Dose Route Start Last Admin Trade Name John PRN Reason Stop Dose Admin Iohexol 85 ml 06/26/24 22:25 06/26/24 22:25 Iohexol 350 Mg/Ml 100 Ml Infus..Btl IV 06/26/24 22:26 85 ml ONCE ONE Administration Ketorolac Tromethamine 15 mg 06/26/24 21:49 06/26/24 22:35 Ketorolac Tromethamine 15 Mg/Ml Vial IVPUSH 06/26/24 21:50 15 mg ONCE ONE Administration Levofloxacin 500 mg 06/26/24 22:28 06/26/24 22:37 Levofloxacin 500 Mg Tablet PO 06/26/24 22:29 500 mg ONCE ONE Administration Medical Decision Making Medical Decision Making MDM Narrative: -my interpretation of labs: White blood cell count 11.6, hematology normal,. Urinalysis positive for blood, positive white blood cell counts, epithelial cells present. Comparing the urinalysis from 2020, this time the urinalysis is looks more significant. Back then, patient grew E coli, sensitive to all antibiotics. -given the patient's symptoms and labs, patient will be treated with levofloxacin -my interpretation of CT scan, there is approximately a 1 cm kidney stone in the right kidney, and there is another kidney stone in the left ureter which is likely the source of the patient's pain. Causing moderate hydronephrosis. -patient received IV fluids, Toradol. Patient states that her the pain is fairly well controlled. -they occult test is positive. My interpretation of CT scan of the chest abdomen and pelvis: No obvious abnormality that would indicate malignancy. There are some well defined cysts in the liver which patient states she has had them before -I discussed with the patient that she will need to get colonoscopy as soon as possible. Patient states that she already scheduled a colonoscopy for November 21, 2024 at [facility] -CT scan shows two 1mm L lung nodules, nonspecific or suspicious. -patient has UTI and flank pain. Clinically this would be pyelonephritis. However, patient does have a kidney stone traveling in the ureter. Patient will be treated with levofloxacin. Patient's vitals are normal, no fever chills, no tachycardia. Sepsis is not suspected Differential Diagnosis Differential Diagnoses: The differential diagnosis associated with the presentation includes (Kidney stones, and lower GI bleed, hepatic masses, lung nodules) Lab Data MDM Lab Attestation statement: I reviewed the patient's lab results. 06/26/24 21:36 06/26/24 21:36 Labs: Lab Results 06/26/24 06/26/24 Range/Units 21:36 22:01 WBC 11.6 H (4.8-10.8) X10*3/uL RBC 4.30 (4.20-5.50) X10*6/uL Hgb 12.9 (12.0-16.0) g/dl Hct 38.0 (37.0-47.0) % MCV 88.4 (80.0-98.0) fL MCH 30.0 (27.0-33.0) pg MCHC 33.9 (31.0-35.0) g/dl RDW 13.1 (11.0-16.0) % Plt Count 321 (160-400) X10*3/uL MPV 9.5 (9.4-12.3) fL Immature Gran % (Auto) 0.5 H (0.0-0.4) % Neut % (Auto) 62.1 (45-73) % Lymph % (Auto) 28.7 (20-40) % [place] % (Auto) 6.9 (2-11) % Eos % (Auto) 1.1 (0-4) % Baso % (Auto) 0.7 (0-2) % Lymph # (Auto) 3.3 (1.2-4.9) X10*3/uL [place] # (Auto) 0.8 (0.1-1.2) X10*3/uL Eos # (Auto) 0.1 (0.0-0.4) X10*3/uL Baso # (Auto) 0.1 (0.0-0.2) X10*3/uL Abs Immat Gran (auto) 0.06 H (0.00-0.03) X10*3/uL Absolute Neuts (auto) 7.2 (2.0-8.3) x10*3/uL Absolute Nucleated RBC 0.000 (0.0-0.012) X10*3/uL Nucleated RBC % (auto) 0.0 (0.0-0.2) /100WBC Sodium 142 (135-145) mmol/L Potassium 3.6 (3.3-5.1) mmol/L Chloride 108 (96-108) mmol/L Carbon Dioxide 25 (22-29) mmol/L Anion Gap 13 (12-20) BUN 13 (9-16) mg/dL Creatinine 1.21 (0.5-1.4) mg/dL Estim Creat Clear Calc 58.4 Estimated GFR 46 Random Glucose 106 (60-115) mg/dL Calcium 9.1 (8.4-10.2) mg/dL Total Bilirubin 0.4 (0.0-1.0) mg/dL Direct Bilirubin 0.1 (0.0-0.5) mg/dL AST 22 (5-31) U/L ALT 29 (0-31) U/L Alkaline Phosphatase 92 (39-117) U/L Total Protein 6.7 (6.5-8.0) g/dL Albumin 4.0 (3.5-5.0) g/dL Urine Color Yellow Urine Appearance Cloudy Urine pH 5.5 (5.0-9.0) Ur Specific [place] 1.020 (1.005-1.025) Urine Protein Trace (Neg-Trace) mg/dL Urine Glucose (UA) Negative (Negative) mg/dL Urine Ketones Trace (Negative) mg/dL Urine Blood Large (3+) H (Negative) Urine Nitrite Negative (Negative) Ur Leukocyte Esterase Small (1+) H (Negative) Urine RBC >20 H (0-2) /HPF Urine WBC 11-20 H (0-5) /HPF Ur Squamous Epith Cells 6-10 (0-2) /HPF Urine Bacteria None Seen (None Seen) Hyaline Casts 3-5 (0-2) /LPF Stool Occult Blood POSITIVE (NEGATIVE) Independent Interpretation I performed an independent interpretation of an: CT Scan Radiology Impression Discussion of test interpretation with radiology: I have reviewed the radiologist's reading. Radiologist Impression: CT CHEST: Lungs: No acute airspace opacities. No interstitial lung disease. Central bronchial airways are open. No bronchiectasis. There are 2 1 mm nodules in the left lung along the major fissure image 223/554 series 9. No suspicious lung nodules. Mediastinum: No mediastinal mass or significant lymphadenopathy. Heart size is normal. No pericardial effusion. Aorta and great vessels are unremarkable. Normal thyroid. Pleura: There is no pleural effusion. No pleural mass or thickening. Axilla: No lymphadenopathy. CT ABDOMEN AND PELVIS: Liver, Gallbladder and Biliary Tree: There are multiple hepatic cysts. No suspicious liver lesion. No intrahepatic bile duct dilatation. The gallbladder is unremarkable with no evidence of radiopaque gallstones, gallbladder wall thickening, or obvious pericholecystic inflammatory changes. Pancreas: No acute change of the pancreas. No mass. No pancreatic duct dilatation. Spleen: Spleen normal in size and contour. No focal lesion. Adrenal Glands: Adrenal glands are normal in size. No focal mass. Kidneys and Ureters: Right kidney: In the right renal pelvis there is a stone measuring 1 cm. Density measurement 802 Hounsfield units. Stone is 10.7 cm in the posterior skin line. No hydronephrosis. Left kidney: Moderate hydronephrosis of left kidney which is central renal pelvis calyces in the left ureter. There is an obstructing stone in the distal left ureter approximately 7 cm proximal to the ureterovesical junction. Stone is 7 mm. No other stone in the collecting system. Bladder: Unremarkable. Gastrointestinal Tract: No acute abnormality. There is no bowel wall thickening /edema. There is no bowel obstruction. There is a moderate volume of stool in the colon. The appendix is normal . The small bowel loops are unremarkable. The stomach is normal. There is no hiatal hernia. Mesentery: No focal inflammation. No free fluid. No free air. Abdominal Wall: Small fat-containing umbilical hernia. Lymph Nodes: Normal. Vascular: Unremarkable. Pelvic Viscera: Unremarkable. Osseous Structures: Unremarkable. CT/CT chest w IV con IMPRESSION: 1. Moderate hydronephrosis of left kidney due to a 7 mm obstructing stone in the distal left ureter. 2. Nonobstructing stone in the right renal pelvis. 3. No acute abnormality of the chest. Discharge Plan Discharge Clinical Impression: Ureterolithiasis, UTI (urinary tract infection), Occult blood in stools Patient Disposition: Home, Self-Care Instructions: Urinary Tract Infection in Women (ED), Ureteral Stones (ED) Additional Instructions: Please follow-up with your primary care physician tomorrow. Make sure you follow-up with your wire coiler for the colonoscopy. If you have any worsening or new symptoms, please return to the emergency room or call 911 Prescriptions: New tamsulosin 0.4 mg capsule 0.4 mg PO DAILY Qty: 30 0RF ondansetron HCl 4 mg tablet 4 mg PO Q6H PRN (Reason: nausea and vomiting) Qty: 20 0RF ketorolac 10 mg tablet 10 mg PO TID PRN (Reason: pain) 5 Days Qty: 15 0RF prednisone 20 mg tablet 20 mg PO DAILY Qty: 3 0RF No Action tamsulosin [Flomax] 0.4 mg capsule 0.4 mg PO BEDTIME 14 Days Qty: 14 0RF prednisone 20 mg tablet 20 mg PO DAILY 3 Days Qty: 3 0RF pyridoxine (vitamin B6) 100 mg tablet 100 mg PO DAILY 90 Days Qty: 90 3RF ondansetron HCl 4 mg tablet 4 mg PO Q8H 7 Days Qty: 21 0RF Print Language: Italian
[2024-06-26 21:57] LABS: Appearance Urine Cloudy; Color Urine Yellow; Glucose Urine UA Negative (Negative); Leukocyte Esterase Urine Small (1+) (Negative); Nitrite Urine Negative (Negative); PH 5.5 (5.0-9.0); UMIC TRIGGER UACC YES; Urine Blood Large (3+) (Negative); Urine Ketones Trace mg/dL (Negative); Urine Protein Trace mg/dL (Neg-Trace)
[2024-06-26 21:59] LABS: Alanine Aminotransferase 29 U/L (0-31); Alkaline Phosphatase 92 U/L (39-117); Anion Gap 13 (12-20); Aspartate Amino Transferase 22 U/L (5-31); Bilirubin Direct 0.1 mg/dL (0.0-0.5); Bilirubin Total 0.4 mg/dL (0.0-1.0); Blood Urea Nitrogen 13 mg/dL (9-16); Calcium 9.1 mg/dL (8.4-10.2); Carbon Dioxide 25 mmol/L (22-29); Chloride 108 mmol/L (96-108); Creatinine Clr Calc Pharmacy 58.4; Estimated Glomerular Filt Rate 46; Glucose Random 106 mg/dL (60-115); Potassium 3.6 mmol/L (3.3-5.1); Sodium 142 mmol/L (135-145); Total Protein 6.7 g/dL (6.5-8.0)
[2024-06-26 22:00] VITALS: BP 138/85; PULSE 72; RESP 16; TEMP 36.6; O2SAT 96
[2024-06-26 22:02] LABS: Bacteria Urine None Seen (None Seen); RBC Urine >20 /HPF (0-2); UACC Culture Trigger YES
[2024-06-26 22:09] LABS: OBS Int Ctl Valid YES; OBS1 POSITIVE (NEGATIVE)
[2024-06-26] MEDS: iohexoL 350 MG/ML 100 ML INFUS..BTL 85 ML IV (22:25)
[2024-06-26] MEDS: Ketorolac Tromethamine 15 MG/ML VIAL IVPUSH (22:35)
[2024-06-26] MEDS: levoFLOXacin 500 MG TABLET PO (22:37)
[2024-06-26] MEDS: 0.9 % Sodium Chloride 1,000 ML 999 ML IVCONT (23:41)
[2024-06-27 00:36] VITALS: BP 148/79; PULSE 67; RESP 16; TEMP 36.6; O2SAT 98
[2024-06-27 01:18] VITALS: BP 148/79; PULSE 67; RESP 16; TEMP 36.6; O2SAT 98
== END 2024-06-27 01:18 | disposition home or self-care (01) ==
PROVIDERS: Emergency Provider Emergency Medicine; PCP Physician Assistant
DX: N39.0 Urinary tract infection, site not specified (principal); R19.5 Other fecal abnormalities; N20.1 Calculus of ureter; R10.9 Unspecified abdominal pain; K62.5 Hemorrhage of anus and rectum; R91.8 Other nonspecific abnormal finding of lung field; N20.0 Calculus of kidney; Z79.899 Other long term (current) drug therapy
CPT/HCPCS: 36415; 71260; 74177; 80048; 80076; 81001; 82272; 85025; 87086; 96361; 96374; 99284; J1885; Q9967

== ENCOUNTER 2024-07-04 14:53 | Outpatient (AMB) | payer BC, SELFPAY ==
--- NOTE | 2024-07-04 14:53 | A.OFFVIS_ITS ---
Intake Visit Reasons: ER follow up/discuss procedure Intake Note: Patient presents today for tele visit Follow up on ER Vist and kidney stones Urology Medications: none Blood Thinner: none ALLERGIES:none Review Trainer Required: No Accompanied by: Self / Same As Patient Allergies No Known Allergies [No Known Allergies*] Allergy (Verified 07/04/24 16:05) Medication List - Last Reconciled 07/04/24 by REE Tapia levofloxacin 500 mg PO DAILY lisinopril 5 mg PO DAILY HPI Comments Details: Ning is a very pleasant 53-year-old female patient of Dr. Silva. She is being followed up on today via video telehealth for her nephrolithiasis. 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 She reports currently being on levofloxacin as prescribed and is due to complete antibiotic therapy in 2 days. She reports pain she had been experiencing has since subsided. In review of patient's chart it appears urine culture 06/26 no growth noted. Right kidney with 1 cm right renal pelvis stone. No right-sided hydronephrosis. Left kidney with moderate hydronephrosis. There is an obstructing stone in the distal left ureter a proximally 7 cm proximal to the UVJ. Stone is 7 mm. No other stone in the collecting system noted. The bladder is unremarkable. She reports feeling she has passed her kidney stone as pain subsided 3-4 days ago. We discussed importance of following up as recommended as patient was previously seen 1 month ago in recommendations were made for follow-up once KUB was completed in this was never followed through. She discusses at length her laps in insurance and was unable to follow-up due to her insurance issues. However, she has recently signed a contract for a travel job in [place] and has insurance. We discussed obtaining renal imaging to ensure resolution of hydronephrosis. She otherwise denies any bothersome urinary issues or concerns at this time. When asked she denies urinary urgency, urinary frequency, incontinence, nocturia, hematuria, dysuria, foul smelling urine, changes to urinary stream, flank pain, fever, and or chills. She is happy with her current voiding parameters. Discussed surveillance monitoring verses further workup versus surgical intervention. Discussed stone burden on right side. She reports compliance with vitamin B6. 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 She otherwise offers no issues or concerns at this time. PREVIOUS VISIT------ Nephrolithiasis/Urolithiasis:? They are here for?further evaluation of nephrolithiasis.? Urolithiasis was diagnosed? 2017? with ER visit at [facility].? The patient previously had kidney? stones whose composition w?08/01 , calcium oxalate -? monohydrate.? Laboratory investigations include?08/01 , Base line serum evaluation, Normocalcemia (9.0),? Normal PTH,? Normal uric acid - high normal? parathyroid hormone and high normal calcium..? 24 Hour urine? evaluation?none on file.? Prior treatment(s) include?observation,? with dietary advice to increase? fluids, decrease salt and watch protein intake.? Prior imaging? includes?06/01 [facility] , a CT (computed tomography) scan of the abdomen/pelvis? (stone protocol) - apparently stone present ?07/02 , a renal? ultrasound, showing no evidence of stones ?01/31 , a renal? ultrasound, showing radiodense stone(s) 2mm Right ?02/01 , a renal? ultrasound, showing radiodense stone(s), 2 mm bilateral ?03/04? , a renal? ultrasound no stones - 04/05 renal ultrasound with 5 mm cyst on right, 4 mm stone on left - 04/06 renal ultrasound 1.2 cm cyst on right, 6 mm stone on left ? UA today shows?specific gravity within? normal range suggestive of adequate hydration today.? Current? therapeutic plan will be?General advice to? maintain good fluid intake for urine greater than 1.5 L per day, reduce salt and? reduce protein and acid loads was provided.? [facility] Medical History Recurrent nephrolithiasis Review of Systems Const All systems reviewed & are unremarkable except as noted in HPI and below Reports no additional complaints Eyes Reports no additional complaints ENT Reports no additional complaints Card Reports no additional complaints Resp Reports no additional complaints GI Reports no additional complaints Reports as per HPI Musc Reports no additional complaints Neuro Reports no additional complaints Psych Reports no additional complaints Endo Reports no additional complaints Jeromy/Lymph Reports no additional complaints Aller/Immun Reports no additional complaints Physical Exam Const General: cooperative, healthy appearing, comfortable, no acute distress, well developed, alert and awake Orientation/consciousness: patient oriented x3 Resp Effort & Inspection: normal respiratory effort and able to speak in complete sentences Neuro General: patient oriented x3 Psych Appearance: grossly normal and well kempt Mental Status: mental status grossly normal Speech and movement: Normal speech and movement present and Clear speech present Affect: normal affect Attitude: cooperative Thought process: Normal thought process present Thought content: Normal thought content present Insight: Fair insight present (Psych) Judgement: Fair judgement present (Psych) Telehealth Telehealth Telehealth Platform: Wevod Location of provider rendering services: practice address Location of patient: address on file Patient Identification confirmed using: Name, : Yes Telehealth method: video Patient verbally consented to treatment: Yes Patient verbally consented to billing insurance company: Yes Patient informed of any privacy concerns related to visit: Yes Minutes spent on Phone/Video with Pt.: 20 Results Reviewed Results Reviewed: Date of Service: 06/26/24 EXAMINATION: CT CHEST, ABDOMEN AND PELVIS withCONTRAST FINDINGS: CT CHEST: Lungs: No acute airspace opacities. No interstitial lung disease. Central bronchial airways are open. No bronchiectasis. There are 2 1 mm nodules in the left lung along the major fissure image 223/554 series 9. No suspicious lung nodules. Mediastinum: No mediastinal mass or significant lymphadenopathy. Heart size is normal. No pericardial effusion. Aorta and great vessels are unremarkable. Normal thyroid. Pleura: There is no pleural effusion. No pleural mass or thickening. Axilla: No lymphadenopathy. CT ABDOMEN AND PELVIS: Liver, Gallbladder and Biliary Tree: There are multiple hepatic cysts. No suspicious liver lesion. No intrahepatic bile duct dilatation. The gallbladder is unremarkable with no evidence of radiopaque gallstones, gallbladder wall thickening, or obvious pericholecystic inflammatory changes. Pancreas: No acute change of the pancreas. No mass. No pancreatic duct dilatation. Spleen: Spleen normal in size and contour. No focal lesion. Adrenal Glands: Adrenal glands are normal in size. No focal mass. Kidneys and Ureters: Right kidney: In the right renal pelvis there is a stone measuring 1 cm. Density measurement 802 Hounsfield units. Stone is 10.7 cm in the posterior skin line. No hydronephrosis. Left kidney: Moderate hydronephrosis of left kidney which is central renal pelvis calyces in the left ureter. There is an obstructing stone in the distal left ureter approximately 7 cm proximal to the ureterovesical junction. Stone is 7 mm. No other stone in the collecting system. Bladder: Unremarkable. Gastrointestinal Tract: No acute abnormality. There is no bowel wall thickening /edema. There is no bowel obstruction. There is a moderate volume of stool in the colon. The appendix is normal . The small bowel loops are unremarkable. The stomach is normal. There is no hiatal hernia. Mesentery: No focal inflammation. No free fluid. No free air. Abdominal Wall: Small fat-containing umbilical hernia. Lymph Nodes: Normal. Vascular: Unremarkable. Pelvic Viscera: Unremarkable. Osseous Structures: Unremarkable. CT/CT abdomen pelvis w IV con IMPRESSION: 1. Moderate hydronephrosis of left kidney due to a 7 mm obstructing stone in the distal left ureter. 2. Nonobstructing stone in the right renal pelvis. 3. No acute abnormality of the chest. Assessment & Plan Assessment & Plan (1) Renal cyst: Code(s): N28.1 - Cyst of kidney, acquired Category: Medical (2) Recurrent nephrolithiasis: Code(s): N20.0 - Calculus of kidney Category: Medical (3) Hydronephrosis concurrent with and due to calculi of kidney and ureter: Code(s): N13.2 - Hydronephrosis with renal and ureteral calculous obstruction Category: Medical Plan Recent CT results reviewed with the patient today; as noted above. Discussed, educated, and stressed the importance of following up as recommended. Discussed obtaining renal ultrasound to ensure resolution of hydronephrosis. Discussed right-sided nephrolithiasis/stone burden; discussed further intervention to include surveillance monitoring verses ESWL; risks and benefits of these interventions were discussed. Patient currently denies any bothersome urinary issues or concerns. She reports be happy with current voiding parameters. Continue vitamin B6 as discussed and prescribed. Discussed, educated, and stressed the importance of adequate hydration relation to nephrolithiasis as well as overall health and well-being. Follow-up in 1-2 months with imaging to be completed prior or sooner with any issues, concerns, and or questions. Orders: Orders US renal BI Today N20.0 - Calculus of kidney Patient Instructions: The patient had an opportunity to ask questions regarding the treatment plan. All questions were answered. Physical exam, labs, and imaging were discussed and reviewed in detail. As well as risks, benefits, and discussion of treatment choices. No major barriers to understanding were identified. The patient expressed understanding and agreement with the above treatment plan. The patient was made aware they should contact our office by phone for worsening of their current condition, the appearance of new symptoms, or with any questions or concerns. Compliance is encouraged with any medications and follow up testing that is ordered. It is a privilege to be allowed the opportunity to participate in? your urological care.? Again, if you have any questions or concerns If you have any questions or concerns please do not hesitate to contact me. The office is [phone]. This note is constructed using voice recognition software. While every effort has been made to ensure accuracy auto heater mechanic errors may have been included. Yours sincerely, REE Tapia Coding Level of Care Code Tele Est Pt Level 3 (46845) Diagnoses Renal cyst N28.1 Recurrent nephrolithiasis N20.0 Hydronephrosis concurrent with and due to calculi of kidney and ureter N13.2 Time Spent (min) 20
== END 2024-07-04 16:05 | disposition home or self-care (01) ==
LOC: HO.HUSH 14:53
PROVIDERS: PCP Physician Assistant; Visit Provider Nurse Practitioner Family
DX: N28.1 Cyst of kidney, acquired (principal); N20.0 Calculus of kidney; N13.2 Hydronephrosis with renal and ureteral calculous obstruction
CPT/HCPCS: 99213

== ENCOUNTER → 2024-07-04 14:53 | Outpatient (BNVA) | payer BC, SELFPAY | PROVIDERS: PCP Physician Assistant; Visit Provider Nurse Practitioner Family ==

== ENCOUNTER → 2024-07-25 15:49 | Outpatient (BNVA) | payer BC, SELFPAY | PROVIDERS: PCP Physician Assistant; Visit Provider Nurse Practitioner Family ==

== ENCOUNTER 2024-10-25 10:43 | Outpatient (REF) | payer BC, SELFPAY ==
--- NOTE | ~2024-10-25 | XR_ITS ---
CLINICAL HISTORY: N20.0 - Calculus of kidney 1 view abdomen Comparison: None Findings: No pneumoperitoneum or pneumatosis. No abnormal calcifications. No acute fractures. There is a 1.3 cm right renal calculus. An IUD is present. IMPRESSION: There is a 1.3 cm right renal calculus in the region of the hilum. This document has been electronically signed by: Rico Bai MD on 10/28/2024 12:22:01
--- OUTSIDE RECORDS SUMMARY | 2024-10-25 10:58 | XMS_ITS | Continuity of Care Document ---
Author Organization [facility] Address [address] [place] [address]- Care Team Providers Care Telecine Operator Name Role Phone Duke Sandoval Primary Care Physici an Encounter [facility] Date(s): 09/03/24 - 10/06/[address] [address] [phone] Attending Physician: Malinda Trejo Admitting Physician: Malinda Trejo Referring Physician: Malinda Trejo Encounter Type: Pre-Outpt Allergies, Adverse Reactions, Alerts No Known Allergies Immunizations Given and Recorded Vaccine Date Status Refusal Reason influenza virus vaccine, inactivated 06/25/24 Piotr rded influenza virus vaccine, inactivated 07/16/23 Piotr rded influenza virus vaccine, inactivated 08/05/21 Piotr rded influenza virus vaccine, inactivated 08/24/20 Piotr rded influenza virus vaccine, inactivated 08/24/19 Piotr rded influenza virus vaccine, inactivated 09/09/18 Piotr rded influenza virus vaccine, inactivated 09/25/17 Give n influenza virus vaccine, inactivated 09/16/17 Piotr rded influenza virus vaccine, inactivated 08/17/16 Give n SARS-CoV-2 (COVID-19) mRNA BNT-162b2 vac 06/19/21 Recorded SARS-CoV-2 (COVID-19) mRNA BNT-162b2 vac 11/17/20 Recorded SARS-CoV-2 (COVID-19) mRNA BNT-162b2 vac 10/23/20 Recorded tetanus-diphtheria toxoids (Td) 11/08/19 Recorded Boostrix (Tdap) (oldterm) 06/05/09 Given Medications albuterol CFC free 90 mcg/inh inhalation aerosol 2, puffs, Inhalation, Every 4 hours, PRN, # 1 each, Refills 0, Tot. Refills 0, Maintenance, 249:01:00 PM EDT, Aerosol, Route to Pharmacy Electronically, [id number], [facility]/pharmacy #[id number], 165, cm, 03/13/24 19:25:00 EDT, Height, 89.9, kg, 03/13/24 19:25:00 EDT, Dry Weight Start Date: 03/13/24 Status: Ordered Quantity: 1.0 Unit: each Repeat number: 1 Diflucan 150 mg oral tablet 1 tablet = 150 mg, By Mouth, Once, May repeat dose in 72 hours if no improvement., # 2 tablet, 0 Refills, Soft Stop, 06/27/24 2:01:00 PM EDT, [facility]/pharmacy #[id number], Partial fill upon patient request if the prescription is for a schedule II opioid drug., 165.5, cm, 04/05/24 15:58:00 EDT, Height, 89.9, kg, 03/13/24 19:25:00 EDT, Dry Weight Start Date: 06/27/24 Status: Ordered Quantity: 2.0 Unit: tablet Repeat number: 1 lisinopril 5 mg oral tablet 5 mg, 1, tablet, By Mouth, Daily, ok to fill early for travel, # 90 tablet, Refills 1, Tot. Refills1, Maintenance, 05/23/24 1:09:00 PM EDT, Route to Pharmacy Electronically, [facility]/pharmacy #[id number], Partial fill upon patient request if the prescription is for a schedule II opioid drug., 165.5, cm, 04/05/24 15:58:00 EDT, Height, 89.9, kg, 03/13/24 19:25:00 EDT, Dry Weight Start Date: 05/23/24 Status: Ordered Quantity: 90.0 Unit: tablet Repeat number: 2 Problem List Condition Confirmation Course Effective Dates Status H ealth Status Informant Family history of cardiovascular disease 1 Confirmed Active FH: Diabetes mellitus 2 Confirmed Active Hx of ovarian cyst Confirmed Active HEARING LOSS Confirmed 06/05/09 Active Nephrolithiasis 3 Confirmed 08/16/10 Active Obese class I Confirmed Active Vitamin D deficiency Confirmed Active 1father age 67 2mother 3Dr Ford Social History Social History Type Response Smoking Status Never smoker; Tobacc o user in household: No entered on: 06/13/17 Sex Sex Representation Female (finding) Patient Care team information Care Team Personnel Name: Duke Sandoval Position: S PCO Associate Professional Member Role: PCP Address: [address] [place] [id number] Telecom: Care Team Related Persons Name: SHARATH HERNANDEZ Insurance Providers Guarantor name: MARIMAR HERNANDEZ [employer] [facility] Information #: 1 Payer: [employer] Member Number: [id number] Policy Number: NA Group Number: [id number] Health Plan Information #: 2 Payer: [employer] Member Number: [id number] Policy Number: NA Group Number: [id number]
== END 2024-10-25 10:44 | disposition home or self-care (01) ==
LOC: HO.XRAY 10:43
PROVIDERS: PCP Physician Assistant; Visit Provider Nurse Practitioner Family
DX: N20.0 Calculus of kidney (principal)
CPT/HCPCS: 74018

== ENCOUNTER → 2024-10-25 10:50 | Outpatient (BNV) | payer BC, SELFPAY | PROVIDERS: PCP Physician Assistant; Visit Provider Radiology Diagnostic Radiology | DX: N20.0 Calculus of kidney (principal) | CPT/HCPCS: 74018 ==

== ENCOUNTER 2024-10-31 09:04 | Outpatient (REF) | payer BC, SELFPAY | END 2024-10-31 09:05 | disposition home or self-care (01) | LOC: HO.MAMMO 09:04 | PROVIDERS: PCP Physician Assistant; Visit Provider Physician Assistant | DX: Z12.31 Encounter for screening mammogram for malignant neoplasm of breast (principal) | CPT/HCPCS: 77063; 77067 ==

== ENCOUNTER 2024-11-13 16:27 | Outpatient (AMB) | payer BC, SELFPAY ==
--- NOTE | 2024-11-13 16:27 | A.OFFVIS_ITS ---
Intake Visit Reasons: 3 month f/u / KUB(set) Intake Note: Patient presents today for tele visit Follow up on kidney stone and KUB x-ray results Imaging Completed: 10/28/24 Urology Medications: none Blood Thinner: none ALLERGIES:none Food Technician Required: No Accompanied by: Self / Same As Patient Allergies No Known Allergies [No Known Allergies*] Allergy (Verified 11/13/24 16:40) Medication List - Last Reconciled 11/13/24 by REE Tapia lisinopril 5 mg PO DAILY HPI Comments Details: Ning is a very pleasant 54-year-old female patient of Dr. Silva. She is being followed up on today via video telehealth for her nephrolithiasis. Recent KUB results reviewed with the patient today. 11/09 there is a 1.3 cm right renal calculus in the region of the hilum. She does continue to report episodes of right-sided flank pain. She has a longstanding history of nephrolithiasis as well as surgical intervention for nephrolithiasis. She does note having had episodes of dark-colored urine since her last office visit. She currently denies any bothersome urinary issues or concerns. We discussed surveillance monitoring versus surgical intervention. Risks and benefits of these interventions were discussed. Patient would like to proceed with surgical intervention. When asked she denies urinary urgency, urinary frequency, incontinence, nocturia, hematuria, dysuria, foul smelling urine, changes to urinary stream, fever, and or chills. She is happy with her current voiding parameters. She reports compliance with vitamin B6 and is drinking plenty of fluid daily. She otherwise offers no issues or concerns at this time. PREVIOUS VISIT------ Nephrolithiasis/Urolithiasis:? They are here for?further evaluation of nephrolithiasis.? Urolithiasis was diagnosed? 2017? with ER visit at [facility].? The patient previously had kidney? stones whose composition w?08/01 , calcium oxalate -? monohydrate.? Laboratory investigations include?08/01 , Base line serum evaluation, Normocalcemia (9.0),? Normal PTH,? Normal uric acid - high normal? parathyroid hormone and high normal calcium..? 24 Hour urine? evaluation?none on file.? Prior treatment(s) include?observation,? with dietary advice to increase? fluids, decrease salt and watch protein intake.? Prior imaging? includes?06/01 [facility] , a CT (computed tomography) scan of the abdomen/pelvis? (stone protocol) - apparently stone present ?07/02 , a renal? ultrasound, showing no evidence of stones ?01/31 , a renal? ultrasound, showing radiodense stone(s) 2mm Right ?02/01 , a renal? ultrasound, showing radiodense stone(s), 2 mm bilateral ?03/04? , a renal? ultrasound no stones - 04/05 renal ultrasound with 5 mm cyst on right, 4 mm stone on left - 04/06 renal ultrasound 1.2 cm cyst on right, 6 mm stone on left ? UA today shows?specific gravity within? normal range suggestive of adequate hydration today.? Current? therapeutic plan will be?General advice to? maintain good fluid intake for urine greater than 1.5 L per day, reduce salt and? reduce protein and acid loads was provided.? [facility] Medical History Recurrent nephrolithiasis Review of Systems Const All systems reviewed & are unremarkable except as noted in HPI and below Reports no additional complaints Eyes Reports no additional complaints ENT Reports no additional complaints Card Reports no additional complaints Resp Reports no additional complaints GI Reports no additional complaints Reports as per HPI Musc Reports no additional complaints Neuro Reports no additional complaints Psych Reports no additional complaints Endo Reports no additional complaints Jeromy/Lymph Reports no additional complaints Aller/Immun Reports no additional complaints Physical Exam Const General: cooperative, healthy appearing, comfortable, no acute distress, well developed, alert and awake Orientation/consciousness: patient oriented x3 Resp Effort & Inspection: normal respiratory effort and able to speak in complete sentences Neuro General: patient oriented x3 Psych Appearance: grossly normal and well kempt Mental Status: mental status grossly normal Speech and movement: Normal speech and movement present and Clear speech present Affect: normal affect Attitude: cooperative Thought process: Normal thought process present Thought content: Normal thought content present Insight: Fair insight present (Psych) Judgement: Fair judgement present (Psych) Telehealth Telehealth Telehealth Platform: Octopart Location of provider rendering services: practice address Location of patient: address on file Patient Identification confirmed using: Name, : Yes Telehealth method: video Patient verbally consented to treatment: Yes Patient verbally consented to billing insurance company: Yes Patient informed of any privacy concerns related to visit: Yes Minutes spent on Phone/Video with Pt.: 22 Results Reviewed Results Reviewed: Date of Service: 10/25/24 CLINICAL HISTORY: N20.0 - Calculus of kidney Findings: No pneumoperitoneum or pneumatosis. No abnormal calcifications. No acute fractures. There is a 1.3 cm right renal calculus. An IUD is present. IMPRESSION: There is a 1.3 cm right renal calculus in the region of the hilum. Assessment & Plan Assessment & Plan (1) Microscopic hematuria: Code(s): R31.29 - Other microscopic hematuria Category: Medical (2) Recurrent nephrolithiasis: Code(s): N20.0 - Calculus of kidney Category: Medical Plan: Plan Extracorporeal Shock Wave Lithotripsy We discussed the nature of the decision and reasonable alternatives for performing the above surgery. Interventions include chemical dissolution, ESWL, ureteroscopy with laser lithotripsy and stent placement, PCNL. ? Options such as medical therapy were discussed. The relative uncertainties and benefits related to each alternate procedure were adequately discussed. General surgical risks including, but not limited to, pain, bleeding, infection, myocardial infarction, pulmonary embolus, deep vein thrombosis and cerebrovascular accident which may result in further hospitalization were discussed.? Full disclosure of the procedure as well as all major risks, benefits and complications were discussed including but not limited to risks of bleeding, injury to the kidney with hematoma or patrick-hematoma, failure to fragments stone, potential for ureteric obstruction from stone passage and need for secondary procedures.? There is a small long-term risk of hypertension and a question julia of diabetes.? Success rate of fragmentation and passage is approximately 70- 75%.? This is compared to the risks and benefits for ureteroscopy which has a higher success rate but is a more invasive procedure. The success rate of the procedure was discussed. Success of the procedure in the short-term does not necessarily guarantee that long-term success will be maintained. Suitable follow up will need to be maintained. The patient showed understanding of the discussion as well as the typical recovery time, and the outpatient nature of this procedure. Opportunity was given for questions. Repeat-back protocol used to confirm understanding. They wish to proceed with right ESWL Plan Recent KUB results reviewed with the patient today; as noted above. We discussed at length further intervention to include surveillance monitoring versus ureteroscopy verses ESWL; risks and benefits of these interventions were discussed. All questions were answered. Discussed importance of adequate/increase in hydration relation to nephrolithiasis as well as overall health and well-being. Discussed near future metabolic workup with [facility]. Will schedule for right-sided ESWL as discussed. Follow-up per doctor's orders; or sooner with any issues, concerns, and or questions. Orders: Orders Urine Cytology Today R31.29 - Other microscopic hematuria Patient Instructions: The patient had an opportunity to ask questions regarding the treatment plan. All questions were answered. Physical exam, labs, and imaging were discussed and reviewed in detail. As well as risks, benefits, and discussion of treatment choices. No major barriers to understanding were identified. The patient expressed understanding and agreement with the above treatment plan. The patient was made aware they should contact our office by phone for worsening of their current condition, the appearance of new symptoms, or with any questions or concerns. Compliance is encouraged with any medications and follow up testing that is ordered. It is a privilege to be allowed the opportunity to participate in? your urological care.? Again, if you have any questions or concerns If you have any questions or concerns please do not hesitate to contact me. The office is [phone]. This note is constructed using voice recognition software. While every effort has been made to ensure accuracy puppet developer errors may have been included. Yours sincerely, REE Tapia Coding Level of Care Code Tele Est Pt Level 4 (90826) Diagnoses Microscopic hematuria R31.29 Recurrent nephrolithiasis N20.0
--- OUTSIDE RECORDS SUMMARY | 2024-11-13 17:52 | XMS_ITS | Clinical Summary ---
Author Organization [facility] Address [address] [place] [address] Care Team Providers Care Used Car Lot Attendant Name Role Phone Unavailable Primary Care Provider Unavailabl e Allergies No known active allergies Medications No known medications Social History Tobacco Use Types Packs/Day Years Used Date Smoking Tobacco: Never Smokeless Tobacco: Never Sex and Gender Information Value Date Recorded Sex Assigned at Not on file Gender Identity Not on file Sexual Orientation Not on file Last Filed Vital Signs Vital Sign Reading Time Taken Comments Blood Pressure 155/94 07/28/2020 9:48 AM EDT Pulse 75 07/28/2020 9:48 AM EDT Temperature 36.7 ??C (98.1 ??F) 07/28/2020 9:48 AM ED T Respiratory Rate - - Oxygen Saturation 99% 07/28/2020 9:48 AM EDT Inhaled Oxygen Concentration - - Weight - - Height - - Body Mass Index - - Plan of Treatment Health Maintenance Due Date Last Done Comments Hepatitis C Virus Screening 1968 HIV Screening 1981 DTaP/Tdap/Td Vaccines (1 - Tdap) 1987 Hepatitis B Vaccines (1 of 3 - 19+ 3-dose series) 1987 Pap Smear (Ages 21-65) 1989 Mammogram 2008 Colonoscopy 2013 Pneumococcal Vaccines 50+ (1 of 1 - PCV) 2018 Zoster (Shingles) Vaccine (1 of 2) 2018 Influenza Vaccine 05/16/2024 COVID-19 Vaccine ( - 2023-2 5 season) 2024 Pneumococcal Vaccine: Pediat nitin (0-5 Years) and At-Risk Patients (6 to 49 Years) Aged Out No longer eligible b ased on patient's age to complete this topic
--- OUTSIDE RECORDS SUMMARY | 2024-11-13 17:52 | XMS_ITS | Continuity of Care Document ---
Author Organization [facility] Address [address] [place] [id number]- Care Team Providers Care Daycare Assistant Name Role Phone Sarah GIFFORD, Duke Goel Primary Care Physici an Encounter [facility] Date(s): 10/28/24 - 11/04/24 [facility] [address] [place] [address]- Attending Physician: Chevy Aguilar MD Referring Physician: Malinda Trejo Encounter Type: Office Visit Allergies, Adverse Reactions, Alerts No Known Allergies [...] Recorded Boostrix (Tdap) (oldterm) 06/05/09 Given Medications lisinopril 5 mg oral tablet 5 mg, 1, tablet, By Mouth, Daily, ok to fill early for travel, # 90 tablet, Refills 1, Tot. Refills1, Maintenance, 05/23/24 1:09:00 PM EDT, Route to Pharmacy Electronically, [facility]/pharmacy #[id number], Partial fill upon patient request if the prescription is for a schedule II opioid drug., 165.5, cm, 04/05/24 15:58:00 EDT, Height, 89.9, kg, 03/13/24 19:25:00 EDT, Dry Weight Start Date: 05/23/24 Status: Ordered Quantity: 90.0 Unit: tablet Repeat number: 2 [id number] with Electrolytes [employer] (Eqv-GoLYTELY) oral powder for reconstitution 240 mL, By Mouth, Every 10 minutes, until 4 liters are consumed or the rectal effluent is clear, # 4,000 mL, 0 Refills, Maintenance, 10/28/24 9:23:00 AM EST, REC Powder, [facility]/pharmacy #[id number], Partial fill upon patient request if the prescription is for a schedule II opioid drug., 240 mL By Mouth Every10 minutes,Instr:until 4 liters are consumed or the rectal effluent is clear, 165.5, cm, 10/28/24 9:12:00 EST, Height, 89.9, kg, 03/13/24 19:25:00 EDT, Dry Weight Start Date: 10/28/24 Status: Ordered Quantity: 4000.0 Unit: mL Repeat number: 1 Problem List Condition Confirmation Course Effective Dates Status H ealth Status Informant Family history of cardiovascular disease 1 Confirmed Active FH: Diabetes mellitus 2 Confirmed Active Hx of ovarian cyst Confirmed Active HEARING LOSS Confirmed 06/05/09 Active Nephrolithiasis 3 Confirmed 08/16/10 Active Obese class I Confirmed Active Vitamin D deficiency Confirmed Active 1father age 67 2mother 3Dr Ford Vital Signs Most recent to oldest [Reference Range]: 1 Height 165.5 cm (10/28/24 9:12 AM) Weight 90.7 kg (10/28/24 9:12 AM) Oxygen Saturation [94-100 %] 100 % (10/28/24 9:12 AM) Pulse Rate [55-90 bpm] 83 bpm (10/28/24 9:12 AM) Body Mass Index [18.5-24.99 kg/m2] 33.11 kg/m2 *>HHI* (10/28/24 9:12 AM) Blood Pressure [90-138/55-84 mm Hg] 132/ 86mm Hg (10/28/24 9:12 AM) Respiratory Rate [16-30 br/min] 16 br/mi n (10/28/24 9:12 AM) Blood pressure sites Arm, left (10/28/24 9:12 AM) Weight Obtained Via Standing scale (10/28/24 9:12 AM) Social History Social History Type Response Smoking Status Never smoker; Tobacc o user in household: No entered on: 06/13/17 Sex Sex Representation Female (finding) Patient Care team information Care Team Personnel Name: Duke Sandoval Position: [facility] PCO Associate Professional Member Role: PCP Address: [address] [place] [address] Telecom: Care Team Related Persons Name: SHARATH HERNANDEZ Insurance Providers Guarantor name: MARIMAR HERNANDEZ Health Plan Information #: 2 Payer: [employer] Member Number: [id number] Policy Number: NA Group Number: [id number] Health Plan Information #: 1 Payer: [employer] Member Number: [id number] Policy Number: NA Group Number: [id number]
== END 2024-11-13 16:42 | disposition home or self-care (01) ==
LOC: HO.HUSH 16:27
PROVIDERS: PCP Physician Assistant; Visit Provider Nurse Practitioner Family
DX: R31.29 Other microscopic hematuria (principal); N20.0 Calculus of kidney
CPT/HCPCS: 99214

== ENCOUNTER → 2024-11-13 16:27 | Outpatient (BNVA) | payer BC, SELFPAY | PROVIDERS: PCP Physician Assistant; Visit Provider Nurse Practitioner Family ==

== ENCOUNTER 2025-01-01 11:56 | Day surgery (SDC) | payer BC, SELFPAY ==
--- NOTE | 2024-12-31 13:11 | HO.ANESPROP2 ---
Documented by User: Ayana Palmer NP 12/31/24 13:11 HPI - Anesthesia Eval Consult details Narrative: 54yo F for Right Lithotripsy ESW PMFSH Active Problems Active Problems: All Active Problems Hydronephrosis concurrent with and due to calculi of kidney and ureter (Acute) Microscopic hematuria (Acute) Renal cyst (Acute) Recurrent nephrolithiasis (Acute) Past Medical History Medical History (Updated 12/30/24 @ 13:47 by Lea Ho RN) HTN (hypertension) Renal cyst Recurrent nephrolithiasis Surgical History Surgical History (Updated 01/01/25 @ 14:05 by Isabell Bucio, RN) H/O colonoscopy Hx of wisdom tooth extraction Hx of dilation and curettage Social History Social History Patient Tobacco Use Status: Never used Tobacco Use of substances other than those prescribed or required for medical reasons: No Are you DNR?: No Advance Directives: No Advance Directives Information Provided: Yes Meds Allergies Allergy/AdvReac Type Severity Reaction Status Date / Time No Known Allergies Allergy Verified 01/01/25 14:05 [No Known Allergies*] Home Medications ?Medication ?Instructions ?Recorded ?Confirmed ?Last Taken ?Type lisinopril 5 mg tablet 5 mg PO DAILY 07/04/24 12/30/24 01/01/25 09:00 History Assessment and Plan Assessment Anesthesia Assessment: Chart Reviewed Documented by User: Suzie Luong MD 01/01/25 14:44 PMFSH Past Medical History Medical History (Updated 12/30/24 @ 13:47 by Lea Ho RN) HTN (hypertension) Renal cyst Recurrent nephrolithiasis Family History Family history of problems with anesthesia: No Surgical History Surgical History (Updated 01/01/25 @ 14:05 by Isabell Bucio, CRISTIANO) H/O colonoscopy Hx of wisdom tooth extraction Hx of dilation and curettage History of Problems with Anesthesia: No Social History Social History Patient Tobacco Use Status: Never used Tobacco Use of substances other than those prescribed or required for medical reasons: No Are you DNR?: No Advance Directives: No Advance Directives Information Provided: Yes Meds Allergies Allergy/AdvReac Type Severity Reaction Status Date / Time No Known Allergies Allergy Verified 01/01/25 14:05 [No Known Allergies*] Home Medications ?Medication ?Instructions ?Recorded ?Confirmed ?Last Taken ?Type lisinopril 5 mg tablet 5 mg PO DAILY 07/04/24 12/30/24 01/01/25 09:00 History Exam Airway Mallampati Class: II (2 cap left top, 1 implant left bottom) TM Dist: >3cm Neck ROM: Full Heart: rrr Lungs: cta Assessment and Plan Assessment Anesthesia Assessment: Anesthesia Plan Discussed Final Anesthetic Review Family History of Problems with Anesthesia: No History of Problems with Anesthesia: No NPO: Yes ASA Class: II Final Preanesthetic Review: No Changes in Pt Med Stat, Meds/Allgs Chart Reviewed and Consent Obtained/Reviewed Patient Risk: Low Procedure Risk: Low Anesthetic Plan Anesthetic Plan: MAC: Disposition: Standard PACU
--- NOTE | ~2025-01-01 | XR_ITS ---
EXAMINATION: XR ABDOMEN KUB CLINICAL INDICATION: stones COMPARISON: October 25, 2024. TECHNIQUE: AP view of the abdomen. FINDINGS: There is a cluster of 9 and 6 mm calcifications overlapping the right kidney shadow. There is the T-shaped contraceptive device overlapping the lower sacrococcyx. No intestinal obstruction pattern. Spondylosis L5-S1. XR/XR KUB IMPRESSION: Probable nephrolithiasis, right kidney. No change. Electronically signed by: Mac Eason MD 01/02/2025 08:50 AM EDT
[2025-01-01 13:46] VITALS: BMI 33.2
[2025-01-01] MEDS: Lactated Ringers 1,000 ML 999 ML IV (13:55)
[2025-01-01] MEDS: Acetaminophen 1,000 MG/100 ML PIGGYBACK 400 MG IV (13:55)
[2025-01-01 14:00] VITALS: BP 162/80; PULSE 77; RESP 15; TEMP 36.6; O2SAT 99
--- NOTE | 2025-01-01 14:49 | W.PM.OPN ---
Operative Note Operative Note Date of Service: 01/01/25
--- NOTE | 2025-01-01 14:50 | MHC.SHP ---
Pre-Procedural Eval Section A - 24 Hr Update-Section A only Date of Service: 01/01/25 The patient is an INPATIENT: No Changes since office visit: No Cold of Flu in the past 2 weeks, No New Medical Problems, No Changes in Medication and No Patient answered all questions The patient has been examined within 24 hours of the surgical procedure. The History & Physical has been completed within 30 days and I have reviewed it.: Yes Section B - Complete if H&P > 30 days Chief Complaint: Calculus of kidney Details of Present Illness: right eswl Allergies: Allergies Allergy/AdvReac Type Severity Reaction Status Date / Time No Known Allergies Allergy Verified 01/01/25 14:05 [No Known Allergies*] Plan I have reviewed the history and physical and performed a pertinent physical examination on my patient. No changes have occurred unless specified. Time Spent With Patient Time: Total time managing care of this patient today ____ minutes.
--- NOTE | 2025-01-01 14:54 | W.PM.OPN ---
Operative Note Operative Note Date of Service: 01/01/25 Narrative: PreOperative Diagnosis: right Renal stones Post Operative Diagnosis: right Renal stones Procedure: right ESWL Surgeon: Dr Darshan Ford Anesthesia: mac/sedation Indications for procedure: The patient understands ESWL may be a staged procedure and subsequent intervention may be required based on imaging after ESWL. Quoted stone clearance rates for a solitary procedure are in the 70-80% range based primarily on stone location. They also understand there is a risk of bleeding to the kidney, infection, damage to adjacent organs, and stone migration following the procedure. - Imaging right 1.3cm KUB, 11mm on CT Procedure optimization has been performed with IV acetaminophen given in the holding area and 1 L of lactated Ringer's to be given in order to optimize the fluid-stone interface. 20 mg of IV Lasix will be given in the last 5 minutes of the procedure to optimize stone clearance. Procedure: After informed consent was verified the patient was brought to the operating room and placed in a supine position. Anesthesia was performed per protocol. Safety pause time-out was performed. Imaging was displayed in the room and laterality confirmed. ESWL was performed. The 1st 500 shocks were performed at 60 hertz. These were performed with increasing power. Once maximum power was reached the rate was increased to 180 hertz. A total of 2500 shocks were given. Targeted imaging with ultrasound/fluoroscopy showed stone smudging suggestive of disintegration. The patient tolerated the procedure well and was transferred to the recovery area upon completion. Post procedure imaging will be organized. There was no evidence for flank discoloration.
[2025-01-01 15:27] VITALS: BP 118/73; PULSE 83; RESP 16; TEMP 36.5; O2SAT 97
[2025-01-01 15:32] VITALS: BP 106/71; PULSE 74; RESP 16; O2SAT 92
[2025-01-01 15:37] VITALS: BP 105/75; PULSE 84; RESP 20; O2SAT 98
[2025-01-01 15:42] VITALS: BP 123/82; PULSE 78; RESP 20; O2SAT 97
[2025-01-01 15:52] VITALS: BP 125/71; PULSE 70; RESP 18; TEMP 36.2; O2SAT 97
== END 2025-01-01 16:05 | disposition home or self-care (01) ==
PROVIDERS: PCP Physician Assistant; Visit Provider Urology
PROC: (CPT 50590; principal; 2025-01-01 14:50)
DX: N20.0 Calculus of kidney (principal); R31.29 Other microscopic hematuria; I10 Essential (primary) hypertension; N28.1 Cyst of kidney, acquired; Z79.899 Other long term (current) drug therapy
CPT/HCPCS: 50590; 74018; J0131; J2003; J2704

== ENCOUNTER → 2025-01-01 11:56 | Outpatient (BNV) | payer BC, SELFPAY | PROVIDERS: PCP Physician Assistant; Visit Provider Urology | DX: N20.0 Calculus of kidney (principal) | CPT/HCPCS: 50590 ==

== ENCOUNTER → 2025-01-01 13:04 | Outpatient (BNV) | payer BC, SELFPAY | PROVIDERS: PCP Physician Assistant; Visit Provider Radiology Diagnostic Radiology | DX: N20.0 Calculus of kidney (principal) | CPT/HCPCS: 74018 ==

== ENCOUNTER 2025-01-13 15:23 | Outpatient (REF) | payer BC, SELFPAY ==
[2025-01-13 15:49] LABS: Urine Cytology See Pathology rpt
--- OUTSIDE RECORDS SUMMARY | 2025-01-13 17:25 | XMS_ITS | Clinical Summary ---
Author Organization [facility] Address [address] [place] [address] Care Team Providers Care Sign Writer Hand Name Role Phone Unavailable Primary Care Provider [...]
== END 2025-01-13 15:24 | disposition home or self-care (01) ==
LOC: HO.LAB 15:23
PROVIDERS: PCP Physician Assistant; Visit Provider Nurse Practitioner Family
DX: R31.29 Other microscopic hematuria (principal)
CPT/HCPCS: 88112

== ENCOUNTER 2025-02-19 09:58 | Outpatient (AMB) | payer BC, SELFPAY ==
--- NOTE | 2025-02-19 10:03 | MHC.OFFVIS ---
Intake Visit Reasons: ESWL- Post op Intake Note: Patient is present for ESWL-POST OP Urology Medication:TAMSULOSIN Antibiotic Allergy:NONE Blood Thinner:NONE Wool Puller Required: No Allergies No Known Allergies [No Known Allergies*] Allergy (Verified 02/19/25 10:04) HPI Comments Details: Ning is a very pleasant female. She is a patient of Dr. Silva. She seen for following urologic conditions - nephrolithiasis Telemedicine Evaluation 15 min Consultation [employer] Video Follow-up from recent ESWL External ultrasound - no stone fragments seen Discussed positional drainage, 64 oz fluid intake per day with lemon, continuing B6 She showed understanding Surveillance follow-up Nephrolithiasis/Urolithiasis:? They are here for?further evaluation of nephrolithiasis.? Urolithiasis was diagnosed? 2016? with ER visit at [facility].? The patient previously had kidney? stones whose composition w?08/01 , calcium oxalate -? monohydrate.? Laboratory investigations include?08/01 , Base line serum evaluation, Normocalcemia (9.0),? Normal PTH,? Normal uric acid - high normal? parathyroid hormone and high normal calcium..? 24 Hour urine? evaluation?none on file.? Prior treatment(s) include?observation,? with dietary advice to increase? fluids, decrease salt and watch protein intake.? Prior imaging? includes?06/01 [facility] , a CT (computed tomography) scan of the abdomen/pelvis? (stone protocol) - apparently stone present ?07/02 , a renal? ultrasound, showing no evidence of stones ?01/31 , a renal? ultrasound, showing radiodense stone(s) 2mm Right ?02/01 , a renal? ultrasound, showing radiodense stone(s), 2 mm bilateral ?03/04? , a renal? ultrasound no stones - 04/05 renal ultrasound with 5 mm cyst on right, 4 mm stone on left - 04/06 renal ultrasound 1.2 cm cyst on right, 6 mm stone on left - 01/07 KUB 1 point 2 cm right renal calculus ? UA today shows?specific gravity within? normal range suggestive of adequate hydration today.? Current? therapeutic plan will be?General advice to? maintain good fluid intake for urine greater than 1.5 L per day, reduce salt and? reduce protein and acid loads was provided.? PFSH Medical History (Updated 12/30/24 @ 13:47 by Lea Ho RN) HTN (hypertension) Renal cyst Recurrent nephrolithiasis Surgical History (Updated 01/01/25 @ 14:05 by Isabell Bucio, CRISTIANO) H/O colonoscopy Hx of wisdom tooth extraction Hx of dilation and curettage Social History Patient Tobacco Use Status: Never used Tobacco Review of Systems Const All systems reviewed & are unremarkable except as noted in HPI and below Reports no additional complaints Resp Reports no additional complaints GI Reports no additional complaints Reports as per HPI Musc Reports no additional complaints Physical Exam Telemedicine evaluation Appropriate responses Regular breathing rate and rhythm HEENT Head: Yes normal to inspection Ears: hearing grossly normal bilaterally Eyes General: appearance normal, both eyes and all related structures Neck Neck: Yes normal visual inspection Chest Chest palpation & inspection: normal inspection of the chest Resp Effort & Inspection: normal respiratory effort and able to speak in complete sentences Telehealth Telehealth Telehealth Platform: [employer] Location of provider rendering services: practice address Location of patient: address on file Patient Identification confirmed using: Name, : Yes Telehealth method: video Patient verbally consented to treatment: Yes Patient verbally consented to billing insurance company: Yes Patient informed of any privacy concerns related to visit: Yes Minutes spent on Phone/Video with Pt.: 15 Assessment & Plan Assessment & Plan (1) Recurrent nephrolithiasis: Code(s): N20.0 - Calculus of kidney Category: Medical Plan Six-month follow-up renal ultrasound Orders: Orders US renal BI 6 Months N20.0 - Calculus of kidney Medications: Discontinued tamsulosin Discontinued Reason: Patient Completed Course 0.4 mg PO BEDTIME 14 days 14 caps 0RF naproxen Discontinued Reason: Patient Completed Course 500 mg PO BID 7 days PRN 14 tabs 0RF pain oxycodone Partial Fill upon patient request. Discontinued Reason: Patient Completed Course 5 mg PO Q8H 3 days PRN 8 tabs 0RF pain Patient Instructions: This note is constructed using voice recognition software. While every effort has been made to ensure accuracy research methods instructor errors may have been included. Imaging studies, laboratory and physical exam results were discussed and reviewed in detail. No major barriers to patient understanding were identified. An opportunity to ask questions regarding the treatment plan was provided. All questions were answered. The patient expressed understanding and agreement with the above treatment plan. The patient is aware they should contact our office by phone for worsening of their current condition or the appearance of new urologic symptoms. Compliance is encouraged with any medications and followup testing that is ordered. It is a privilege to participate in the urologic care of your patient. If you have any questions or concerns regarding treatment for the above conditions, or other urologic issues, please do not hesitate to contact me. The office telephone contact is [phone]. Sincerely, Dr Darshan Ford MD, [facility] - Urology Compassionate Specialist Care for the Genitourinary System Coding Level of Care Code Tele Est Pt Level 3 (13845) Diagnoses Recurrent nephrolithiasis N20.0
--- OUTSIDE RECORDS SUMMARY | 2025-02-19 10:59 | XMS_ITS | Clinical Summary ---
Author Organization [facility] Address [address] [place] [address] Care Team Providers Care Atomic Spectroscopist Name Role Phone Unavailable Primary Care Provider Unavailabl e Allergies No known active allergies Medications No known medications Social History Tobacco Use Types Packs/Day Years Used Date Smoking Tobacco: Never Smokeless Tobacco: Never Comments Unknown Sex and Gender Information Value Date Recorded Sex Assigned at Not on file Legal Sex Female 9:23 AM EDT Gender Identity Not on file Sexual Orientation [...] (1 of 3 - 19+ 3-dose series) 10/16 Pap Smear (Ages 21-65) 1989 Mammogram 2008 Colonoscopy 2013 Pneumococcal Vaccines 50+ (1 of 1 - PCV) 2018 Zoster (Shingles) Vaccine (1 of 2) 2018 COVID-19 Vaccine (1 - 2023- season) 2024 Influenza Vaccine 05/16/2025 Insurance [facility]
== END 2025-02-19 11:32 | disposition home or self-care (01) ==
LOC: HO.HUSH 09:58
PROVIDERS: PCP Physician Assistant; Visit Provider Urology
DX: N20.0 Calculus of kidney (principal)
CPT/HCPCS: 99024

== ENCOUNTER 2025-07-14 14:51 | Outpatient (REF) | payer BC, SELFPAY ==
--- NOTE | ~2025-07-14 | XR_ITS ---
EXAMINATION: XR ABDOMEN 1 VIEW (KUB) HISTORY: N20.0 - Calculus of kidney COMPARISON: Comparison is made with the prior examination dated 01/01/2025. FINDINGS: Two supine views of the abdomen are submitted. The bowel gas pattern is unremarkable, without evidence of mechanical obstruction. The previously seen 12 mm calcification adjacent to the right transverse process of L2 is now seen in the pelvis may be within the distal right ureter. There are no abnormal soft tissue masses. An IUD is seen in the pelvis. The bones are intact. XR/XR KUB IMPRESSION: Previously seen 12 mm calcification adjacent to the right transverse process of L2 is now in the right hemipelvis and may be within the distal right ureter. If additional imaging is desired, unenhanced CT could be performed. Electronically signed by: Liban Winter MD 07/14/2025 03:34 PM EDT
--- OUTSIDE RECORDS SUMMARY | 2025-07-14 16:56 | XMS_ITS ---
Author Name [facility] Organization Unknown Encounters Encounter Type Encounter Reason Primary Diagnosis Location Date [facility]ulatory [facility] 0 05/07/2025 Care Team Organization Name Specialty Phone Email Start Date End Nishant 05/13/2025 [facility] 05/07/20 25
--- OUTSIDE RECORDS SUMMARY | 2025-07-14 16:56 | XMS_ITS | Clinical Summary ---
Author Organization [facility] ity Address [address] [place] [address] Care Team Providers Care Patient Monitor Name Role Phone Malinda Silva Primary Care Provider [phone] Surgical History Surgery Date Site/Laterality Comments MULTIPLE TOOTH EXTRACTIONS PROCEDURE: HISTORICAL DENTAL EXTRACTION Family History Medical History Relation Name Comments Breast cancer Neg Hx Colon cancer Neg Hx Ovarian cancer Neg Hx Social History Tobacco Use Types Packs/Day Years Used Date Smoking Tobacco: Never Smokeless Tobacco: Never Alcohol Use Standard Drinks/Week Comments No 0 (1 standard drink = 0.6 oz pur e alcohol) Comments Unknown Sex and Gender Information Value Date Recorded Sex Assigned at Not on file Legal Sex Female 3:19 PM EST Gender Identity Not on file Sexual Orientation Not on file Obstetrics History Last Filed Vital Signs Vital Sign Reading Time Taken Comments Blood Pressure 134/92 09/19/2023 8:36 AM EST Pulse 103 09/19/2023 8:36 AM EST Temperature - - Respiratory Rate - - Oxygen Saturation - - Inhaled Oxygen Concentration - - Weight 92.1 kg (203 lb) 09/19/2023 8:36 AM EST Height 165.1 cm (5' 5 ) 08/23/2023 2:23 PM EST Body Mass Index 33.78 08/23/2023 2:23 PM EST Plan of Treatment Upcoming Encounters Date Type Department Care Team (Late st Contact Info) Description 12/10/2025 10:00 AM EST Office Visit [facility] [address] [place] [phone] Misty Bonilla CNM [address] [place] [phone] Health Maintenance Due Date Last Done Comments Breast Cancer Screening 1968 DTaP,Tdap,and Td Vaccines (1 - Tdap) 1987 Hepatitis B Vaccines (1 of 3 - 19+ 3-dose series) 1987 Pneumococcal Vaccine: 50+ Ye ars (1 of 1 - PCV) 2018 Zoster Vaccines (1 of 2) 2018 Colorectal Cancer Screening: Colonoscopy 09/14/2022 HIV Screening 09/14/2022 Hepatitis C Screening 09/14/2022 Social Influencers of Health Screening 09/14/2022 Cervical Cancer Screening: P ap Smear 08/24/2023 08/24/2020 Depression Screening 10/16/2024 COVID-19 Vaccine (1 - 2023-2 5 season) 2025 Influenza Vaccine (#1) 2025 RSV Immunization Adult Patie nts (1 - 1-dose 75+ series) 2043 HIB Vaccines Aged Out No longer eligi ble based on patient's age to complete this topic HPV Vaccines Aged Out No longer eligi ble based on patient's age to complete this topic Hepatitis A Vaccines Aged Out No long er eligible based on patient's age to complete this topic IPV Vaccines Aged Out No longer eligi ble based on patient's age to complete this topic MMR Vaccines Aged Out No longer eligi ble based on patient's age to complete this topic Meningococcal ACWY Vaccine Aged Out N o longer eligible based on patient's age to complete this topic Meningococcal B Vaccine Aged Out No l onger eligible based on patient's age to complete this topic RSV Immunization Patients Un narinder 20 months Aged Out No longer eligible b ased on patient's age to complete this topic Varicella Vaccines Aged Out No longer eligible based on patient's age to complete this topic Procedures Procedure Name Priority Date/Time Associated Diagnosis Comments PAP SMEAR Routine 08/24/2020 from Last 3 Months or Most Recently Relevant to Health Maintenance Results * Pap smear (08/24/2020) 08/24/2020 Narrative HISTORICAL TESTING LAB RESULTING AGENCY - 08/26/2020 4:35 PM EST [id number] THINPREP PAP, IMAGED: NEGATIVE FOR SQUAMOUS INTRAEPITHELIAL LESION AND MALIGNANCY . JS HARMAN(ASCP) (CASE ELECTRONICALLY SIGNED 08 26 2020) RESULT OF APTIMA HIGH RISK HPV ASSAY: HIGH RISK HPV: NEGATIVE (SEROTYPES 16,18,31,33,35,39,45,51,52,56,58,59,66,68) COMPLETED ON 2020-08-26 ADEQUACY: SATISFACTORY ENDOCERVICAL/TRANSFORMATION ZONE COMPONENT PRESENT. SOURCE: THINPREP PAP HPV ANY DX: REFLEX 16 AND 18, CERVICAL, IMAGED CLINICAL INFORMATION: HPV ANY DIAGNOSIS. HORMONES, PAP HX NEG, NO PERIODS - IUD, Z12.4 Lisbeth Coffey DO LAB CYTOLOGY ORDERABLES Final Result HISTORICAL TESTING LAB RESULTING AGENCY from Last 3 Months or Most Recently Relevant to Health Maintenance Insurance [facility] ([facility]) Care Teams Patient Monitor Relationship Specialty Start Date End Date Malinda Silva PA [address] [place] [phone] PCP - General Internal Medicine 09/21/18
--- OUTSIDE RECORDS SUMMARY | 2025-07-14 16:56 | XMS_ITS | Clinical Summary ---
Author Organization [facility] Address [address] [place] [address] Care Team Providers Care Sales Intern Name Role Phone Unavailable Primary Care Provider [...] 75 07/28/2020 9:48 AM EDT Temperature 36.7 C (98.1 F) 07/28/2020 9:48 AM EDT Respiratory Rate - - Oxygen Saturation 99% [...] Vaccine (1 of 2) 2018 Influenza Vaccine 05/16/2025 COVID-19 Vaccine (1 - 2023- season) 2025 Insurance [facility]
[2025-07-14 17:52] LABS: Appearance Urine Clear; Glucose Urine UA Negative (Negative); PH 5.5 (5.0-9.0); Specific Gravity - Urine 1.020 (1.005-1.025); UMIC TRIGGER UA YES
== END 2025-07-14 14:52 | disposition home or self-care (01) ==
LOC: HO.LAB 14:51
PROVIDERS: PCP Physician Assistant; Visit Provider Urology
DX: N20.0 Calculus of kidney (principal)
CPT/HCPCS: 74018; 81001; 87086

== ENCOUNTER → 2025-07-14 14:57 | Outpatient (BNV) | payer BC, SELFPAY | PROVIDERS: PCP Physician Assistant; Visit Provider Radiology Diagnostic Radiology | DX: N20.0 Calculus of kidney (principal) | CPT/HCPCS: 74018 ==

== ENCOUNTER 2025-07-21 12:56 | Day surgery (SDC) | payer BC, SELFPAY ==
--- NOTE | ~2025-07-21 | FL_ITS ---
EXAMINATION: FLUOROSCOPY GUIDANCE FOR RIGHT URETERAL STONE. CLINICAL INFORMATION: stone right COMPARISON: X-ray 07/14/2025 TECHNIQUE: Fluoroscopy provided in the operating room FINDINGS: Fluoroscopy provided in the operating room.] See operative report. FLUOROSCOPY TIME: 13.6 seconds DOSE AREA PRODUCT: 2.89 uGy-m2 (microgray-meter squared) FL/FL guidance in OR IMPRESSION: Fluoroscopy provided in the operating room. See operative report. Electronically signed by: Ralph Gross MD 07/21/2025 04:03 PM EDT
--- OUTSIDE RECORDS SUMMARY | 2025-07-21 08:06 | XMS_ITS | Clinical Summary ---
Author Organization [facility] ity Address [address] [place] [address] Care Team Providers Care Screener Perfumer Name Role Phone Malinda Silva Primary Care Provider [phone] Surgical History Surgery Date Site/Laterality Comments MULTIPLE [...] Obst[facility]s [facility]necology - [facility] [address] [place] [phone] Misty Bonilla CNM [address] [place] [phone] Health Maintenance Due Date Last Done Comments Breast Cancer Screening 1968 Colorectal Cancer Screening: Colonoscopy 1968 DTaP,Tdap,and Td Vaccines (1 - Tdap) 1987 Hepatitis B Vaccines (1 of 3 - 19+ 3-dose series) 1987 Pneumococcal Vaccine: 50+ Ye ars (1 of 1 - PCV) 2018 Zoster Vaccines (1 of 2) 2018 HIV Screening 09/14/2022 Hepatitis C Screening 09/14/2022 [...] RESULTING AGENCY - 08/26/2020 4:35 PM EST [id number] THINPREP PAP, IMAGED: NEGATIVE FOR SQUAMOUS INTRAEPITHELIAL LESION AND MALIGNANCY . [facility] MELO CT(ASCP) (CASE ELECTRONICALLY SIGNED 08 26 2020) RESULT [...] Most Recently Relevant to Health Maintenance Insurance [facility] ([facility]) Care Teams Screener Perfumer Relationship Specialty Start Date End Date Malinda Silva PA [address] [place] [phone] PCP - General Internal Medicine 09/21/18
--- OUTSIDE RECORDS SUMMARY | 2025-07-21 08:06 | XMS_ITS | Clinical Summary ---
Author Organization [facility] Address [address] [place] [address] Care Team Providers Care Customer Sales Distributor Name Role Phone Unavailable Primary Care Provider [...] Vaccine (1 - 2023- season) 2025 Insurance [facility]
[2025-07-21 13:08] VITALS: BMI 33.4
[2025-07-21 13:29] VITALS: BP 142/81; PULSE 91; RESP 18; TEMP 36.7; O2SAT 97
[2025-07-21] MEDS: Lactated Ringers 1,000 ML 50 ML IVCONT (13:33)
--- NOTE | 2025-07-21 13:47 | HO.ANESPROP2 ---
[facility], [facility] Active Problems Active Problems: All Active Problems (Updated 12/30/24 @ 13:47 by Lea Ho RN) Hydronephrosis concurrent with and due to calculi of kidney and ureter (Acute) Microscopic hematuria (Acute) Renal cyst (Acute) Recurrent nephrolithiasis (Acute) Past Medical History Medical History HTN (hypertension) Renal cyst Recurrent nephrolithiasis Family History Family history of problems with anesthesia: No Surgical History Surgical History H/O colonoscopy Hx of wisdom tooth extraction Hx of dilation and curettage History of Problems with Anesthesia: No Social History Social History Are you a primary school childcare attendant to a significant other at home: No Do you presently have visiting nurse or other home services: No Patient Tobacco Use Status: Never used Tobacco Have you been hit, kicked, punched, or otherwise hurt by someone within the past year? If so, by whom?: No Are you DNR?: No Advance Directives: No Advance Directives Information Provided: Yes Poor oral hygiene: No Meds Allergies Allergy/AdvReac Type Severity Reaction Status Date / Time No Known Allergies (No Known Allergy Verified 07/21/25 13:15 Allergies*) Active Medications: Current Medications Fentanyl (Fentanyl Citrate/Pf 100 Mcg/2 Ml Vial) 25 mcg IVPUSH Q5M PRN PRN Reason: Pain, Moderate to Severe (Pain Scale 4-10) Stop: 07/21/25 19:47 Lactated Ringer's (Lr) 1,000 mls @ 50 mls/hr IVCONT .Q20H MILADY Last Admin: 07/21/25 13:33 Dose: 50 mls/hr Naloxone HCl (Naloxone Hcl 0.4 Mg/Ml Vial) 0.04 mg IVPUSH Q5M PRN PRN Reason: Excessive sedation or RR < 8 Ondansetron HCl (Ondansetron Hcl 4 Mg/2 Ml Vial) 4 mg IVPUSH ONCE PRN PRN Reason: Nausea and Vomiting Stop: 07/21/25 19:47 Home Medications ?Medication ?Instructions ?Recorded ?Confirmed ?Last Taken ?Type lisinopril 5 mg tablet 5 mg PO DAILY 07/04/24 07/21/25 07/21/25 History Exam Height,Weight and Vital Signs: Height 5 ft 5 in Weight 91 kg Last Vital Signs Temp 98.1 F 07/21/25 13:29 Pulse 91 07/21/25 13:29 Resp 18 07/21/25 13:29 BP 142/81 H 07/21/25 13:29 Pulse Ox 97 07/21/25 13:29 O2 Del Method Room Air 07/21/25 13:29 Airway Mallampati Class: III TM Dist: <=3cm Neck ROM: Full Heart: rrr Lungs: cta Assessment and Plan Assessment Anesthesia Assessment: Anesthesia Plan Discussed and Chart Reviewed Final Anesthetic Review Family History of Problems with Anesthesia: No History of Problems with Anesthesia: No NPO: Yes ASA Class: II Final Preanesthetic Review: No Changes in Pt Med Stat, Meds/Allgs Chart Reviewed, Consent Obtained/Reviewed and Anes Risks/Benef Reviewed Patient Risk: Intermediate Procedure Risk: Low Anesthetic Plan Anesthetic Plan: GA Disposition: Standard PACU
--- NOTE | 2025-07-21 14:02 | MHC.SHP ---
Pre-Procedural Eval Section A - 24 Hr Update-Section A only Date of Service: 07/21/25 The patient is an INPATIENT: No Changes since office visit: No Cold of Flu in the past 2 weeks, No New Medical Problems, No Changes in Medication and No Patient answered all questions The patient has been examined within 24 hours of the surgical procedure. The History & Physical has been completed within 30 days and I have reviewed it.: No Section B - Complete if H&P > 30 days Chief Complaint: Calculus of kidney Details of Present Illness: Persistent urgency and frequency with right-sided flank pain. Imaging shows stone debris within ureter Relevant Family History (Specify if Yes): No Relevant Social History: None Present Medications: see Short Stay Collaborative assessment Medical History: No relevant PMH History of Previous Operations: Relevant previous surgery/procedure and date(s) Allergies: Allergies Allergy/AdvReac Type Severity Reaction Status Date / Time No Known Allergies (No Known Allergy Verified 07/21/25 13:15 Allergies*) Review of Systems Sugical H&P ROS: Negative: Constitution, Cardiovascular, Respiratory, Neurological, Psychiatric, Hem-Onc, Allergic/Immunologic, Gastrointestinal, Genitourinary, Musculoskeletal, Integumentary, Endocrine and Eyes/Ears/Nose/Throat Exam Surgical H&P Exam: Normal: HEENT, Normal: Heart, Normal: Lungs, Normal: Extremities, Normal: Abdomen, Normal: Skin and Normal: Neurological Plan Diagnosis/Plan: Unchanged (Cystoscopy, right retrograde, right ureteroscopy with laser lithotripsy stent placement) I have reviewed the history and physical and performed a pertinent physical examination on my patient. No changes have occurred unless specified. Time Spent With Patient Time: Total time managing care of this patient today ____ minutes.
[2025-07-21 15:32] VITALS: BP 121/81; PULSE 117; RESP 16; TEMP 36.2; O2SAT 96
[2025-07-21 15:37] VITALS: BP 112/77; PULSE 110; RESP 16; O2SAT 94
[2025-07-21 15:42] VITALS: BP 121/85; PULSE 103; RESP 16; O2SAT 98
--- NOTE | 2025-07-21 15:46 | P.OP_ITS ---
Operative Note Operative Note Date of Service: 07/21/25 Narrative: PreOperative Diagnosis: 12 mm distal right ureteric stone Post Operative Diagnosis: 12 mm distal right ureteric stone Procedure: - cystoscopy, right retrograde - right dilatation of ureteric orifice under fluoroscopy - right ureteroscopy, laser lithotripsy, stone basketing - modified 22 - 100% longer than typical - 40 minutes versus 20 minutes - right stent placement Surgeon: Dr Darshan Ford Anesthesia: General Indications for procedure: Persistent urgency and frequency. KUB shows distal right 10-12 mm stone. Procedure: After informed consent was verified the patient was brought to the operating room and placed in a supine position. Anesthesia was administered per protocol. The patient was placed in a modified dorsal lithotomy position and prepped and draped in a sterile fashion. Safety pause time-out and side of surgery were confirmed. Images were available for review. Antibiotic administration confirmed. A 22 [place] cystoscope was inserted per urethra. The urethra was without abnormality. The bladder was normal in its entirety. Both ureteric orifices were seen in normal position. The right ureteric orifice was cannulated and a retrograde examination was performed. Filling defect distal portion right ureteric stone . A Sensor guidewire was placed up to the level of the renal pelvis under fluoroscopy. The rigid cystoscope was removed. A [place] dilator was placed over the Sensor guidewire and used to dilate the ureteric orifice under fluoroscopy. The dilator was removed. The semi rigid ureteral scope was placed alongside the Sensor guidewire. Using a quanta 65 w holmium laser machine with laser tunnel and hammer settings the stone was addressed. Using a 365 micro holmium laser fiber the stone was broken into small pieces using a combination of hammer and dusting techiques. Stone fragments were removed from the ureter using a 1.9 [place] ZeroTip basket. Multiple passes were required. Laser time was 100% longer than typical due to size of fragment stone stuck in distal ureter. Once the fragments were removed a decision was made to place a ureteric stent. Based on the height of the patient a 6 Fr x 24 cm stent was used. The string was left on the stent. A 6 [place] by 24 cm double-J stent was placed into the renal pelvis and bladder under a combination of fluoroscopy and direct visualization. The symphisis pubis was used as a radiographic marker to release the stent and good coil was seen within the bladder confirming position Proximal positioning of the stent was confirmed using fluoroscopy. The bladder was emptied. The patient tolerated the procedure well and was extubated in the operating room. They were transferred in stable condition to the recovery area. Pathology: stones Drains: Double J stent as described above
[2025-07-21 15:47] VITALS: BP 135/85; PULSE 97; RESP 16; O2SAT 98
[2025-07-21 16:02] VITALS: BP 117/81; PULSE 96; RESP 16; TEMP 36.2; O2SAT 98
== END 2025-07-21 16:45 | disposition home or self-care (01) ==
PROVIDERS: PCP Physician Assistant; Visit Provider Urology
PROC: (CPT 52356; principal; 2025-07-21 14:40)
DX: N20.1 Calculus of ureter (principal); I10 Essential (primary) hypertension
CPT/HCPCS: 52356; 82365; C1758; C1769; C2617; J0131; J1100; J1596; J2003; J2371; J2405; J2704; J3010; Q9967

== ENCOUNTER → 2025-07-21 12:56 | Outpatient (BNV) | payer BC, SELFPAY | PROVIDERS: PCP Physician Assistant; Visit Provider Urology | DX: N20.1 Calculus of ureter (principal) | CPT/HCPCS: 52356; 74420 ==